=== PATIENT | female | born 1975 | race Caucasian/White ===

== ENCOUNTER → 2019-04-22 11:43 | Outpatient (CLI) | payer OTHER, SELFPAY | PROVIDERS: Visit Provider Nurse Practitioner | DX: R07.0 Pain in throat (principal) | CPT/HCPCS: 87070 ==

== ENCOUNTER 2020-08-06 17:59 | Emergency (ER) | payer OTHER, SELFPAY ==
[2020-08-06 18:03] VITALS: BP 196/101; PULSE 102; RESP 20; TEMP 36.9; O2SAT 100
--- NOTE | 2020-08-06 18:05 | DI.RAD.S_ITS ---
PROCEDURE: XR ANKLE RT MIN 3V INDICATIONS: twisting injury r/t glf TECHNIQUE: 3 views of the ankle were acquired. COMPARISON: None. FINDINGS: Bones: No fractures or dislocations. Ankle mortise is normally aligned. No suspicious bony lesions. Plantar calcaneal enthesophyte. Degenerative change in the midfoot. Soft tissues: No tibiotalar joint effusion. Achilles tendon appears normal. IMPRESSION: No acute osseous abnormality. Dictated by: Joseph Syed M.D. on 08/06/2020 at 18:48 Approved by: Joseph Syed M.D. on 08/06/2020 at 18:50
--- NOTE | 2020-08-06 18:05 | DI.RAD.S_ITS ---
PROCEDURE: XR FOOT RT MIN 3V INDICATIONS: twisting injury r/t glf TECHNIQUE: 3 views of the foot were acquired. COMPARISON: [facility], CR, XR ANKLE RT MIN 3V, 08/06/2020, 18:04. FINDINGS: Bones: No fractures or dislocations. No suspicious bony lesions. Plantar calcaneal spur. Degenerative change in the midfoot. Soft tissues: No tibiotalar joint effusion. Achilles tendon appears normal. IMPRESSION: No acute osseous abnormality. Dictated by: Joseph Syed M.D. on 08/06/2020 at 18:50 Approved by: Joseph Syed M.D. on 08/06/2020 at 18:50
--- NOTE | 2020-08-06 20:36 | ED.LOWEXIN ---
HPI - Extremity Injury (Lower) General Chief Complaint: Extremity Injury, Lower Stated Complaint: rt foot injury Time Seen by Provider: 08/06/20 18:04 Source: patient Mode of arrival: Wheelchair Limitations: no limitations History of Present Illness HPI Narrative: 44-year-old female former smoker with noncontributory medical history presents with her in the chief complaint of severe pain and swelling to her right foot and ankle after injury just prior to arrival. She was standing about 3 ft up on a small ladder when she misjudged her step and fell. She has the pain in her foot and ankle which are much worse with palpation and prevent her from ambulating. She denies any knee or hip pain. She did not strike her head and denies any neck or back pain. She denies any numbness, tingling or weakness. She is otherwise well and free of complaint MD complaint: ankle injury and foot injury Onset (ago): minute(s) Place: home Severity: severe Relieving factors: immobilization and rest Exacerbating factors: weight bearing and movement Context: fall Associated symptoms: snap/pop sensation, swelling and unable to bear weight Other symptoms: none Treatments prior to arrival: cold therapy Related Data Previous Rx's Medication Instructions Recorded albuterol sulfate 90 mcg/actuation 2 puff INHALATION Q4-6H PRN #8 gram 04/22/19 aerosol inhaler hydrocodone-acetaminophen 1 tab PO Q4-6H PRN #10 tab 08/06/20 Allergies Allergy/AdvReac Type Severity Reaction Status Date / Time Penicillins Allergy Unknown Unknown Verified 07/05/19 12:10 Review of Systems Constitutional Constitutional: Denies chills, Denies fatigue, Denies fever(s), Denies frequent falls, Denies lethargy and Denies weakness Eyes Eyes: Denies change in vision, Denies eye discharge, Denies irritation and Denies loss of vision ENT Ears, Nose, Mouth, and Throat: Denies change in voice, Denies dizziness, Denies neck pain, Denies sore throat and Denies throat swelling Cardiovascular Cardiovascular: Denies chest pain, Denies irregular heart rhythm, Denies lightheadedness, Denies palpitations, Denies dyspnea, Denies dyspnea on exertion and Denies orthopnea Respiratory Respiratory: Denies cough, Denies dyspnea, Denies dyspnea on exertion and Denies wheezing Gastrointestinal Gastrointestinal: Denies abdominal pain, Denies change in bowel habits, Denies diarrhea, Denies nausea and Denies vomiting Musculoskeletal Musculoskeletal: Reports arthralgias, Reports joint swelling, Reports limited range of motion, Denies neck pain and Denies numbness Integumentary/Breasts Skin/Breast: Denies pruritus, Denies erythema, Denies rash and Denies wounds Neurologic Neurologic: Denies behavioral changes, Denies confusion, Denies dizziness, Denies frequent falls, Denies loss of vision, Denies numbness and Denies weakness Psychiatric Psychiatric: Denies anxiety, Denies behavioral changes, Denies confusion, Denies depression, Denies homicidal ideation and Denies suicidal ideation Endocrine Endocrine: Denies fatigue, Denies flushing and Denies palpitations Hematologic/Lymphatic Hematologic/Lymphatic: Denies easy bruising Allergic/Immunologic Allergic/Immunologic: Denies urticaria, Denies throat swelling and Denies wheezing Patient History Social History Smoking Status: Former smoker Smoking Status: Former smoker Exam Narrative Exam Narrative: GEN: AOx3 and in mild distress EYES: Pupils are equal, round, and reactive to light and accommodation. Extraoccular muscles are intact bilaterally. There is no subconjunctival hemorrhage or exudate. CHEST: Lungs are clear to auscultation bilaterally and free of wheezes, rales, or rhonchi. Heart rate is regular rhythm, there are no murmurs, clicks, rubs, or gallops. There is no chest wall tenderness. ABD: Abdomen is soft and nontender. There is no guarding or rebound. Bowel sounds are normal in all 4 quadrants. There is no mass or organomegaly. EXT: Right ankle with limited range of motion secondary to pain and noted swelling and ecchymosis. Pain on palpation of lateral and medial malleoli and under heel. This is closed, isolated and neurovascularly intact.. SKIN: Warm, pink, and dry. No erythema or rash Initial Vital Signs Initial Vital Signs: Vital Signs Temperature 98.5 F 08/06/20 18:03 Pulse Rate 102 H 08/06/20 18:03 Respiratory Rate 20 08/06/20 18:03 Blood Pressure 196/101 H 08/06/20 18:03 Pulse Oximetry 100 08/06/20 18:03 Procedures Orthopedic Splinting/Casting Injury #1: Side: right Lower Extremity Injury Location: ankle and foot Lower Extremity Immobilizer: posterior splint and stirrup splint Other Orthopedic Equipment: crutches Post splinting neuro exam: intact Post splinting vascular exam: intact Placed by: Nursing Course Orders Ordered: Discontinued Medications Hydrocodone Bitart/Acetaminophen (Hydrocodone/Acet 5/325 Tablet) 2 tab PO NOW ONE Stop: 08/06/20 20:49 Last Admin: 08/06/20 21:06 Dose: 2 tab Documented by: THANIA Hydrocodone Bitart/Acetaminophen (Hydrocodone/Acet 5/325 Prepack) 1 bottle MISC SEEINSTR ONE Stop: 08/06/20 20:49 Last Admin: 08/06/20 21:06 Dose: 1 bottle Documented by: THANIA Ondansetron HCl (Ondansetron 4 Mg Odt Prepack) 1 bottle MISC SEEINSTR ONE Stop: 08/06/20 20:49 Last Admin: 08/06/20 21:06 Dose: 1 bottle Documented by: THANIA Ondansetron HCl (Ondansetron 4 Mg Odt) 4 mg SL NOW ONE Stop: 08/06/20 21:20 Last Admin: 08/06/20 21:23 Dose: 4 mg Documented by: THANIA Vital Signs Vital signs: Vital Signs - 8 hr 08/06/20 18:03 Temperature 98.5 F Pulse Rate 102 H Respiratory Rate 20 Blood Pressure 196/101 H Pulse Oximetry 100 MDM - Extremity Injury (Lower) Imaging Data Extremity x-ray #1: Radiologist's Impression: [address] [id number] ReportSigned Patient: Breanna Avila [facility]#: [id number]: 1975Acct:[id number]/Sex: 44 / FDate of Service: 08/06/20Loc: EDAccession Number: [id number] Procedure: XR ankle RT min 3V Ordering Provider: Pradeep Brown D.O. PROCEDURE: XR ANKLE RT MIN 3V INDICATIONS: twisting injury r/t glf TECHNIQUE: 3 views of the ankle were acquired. COMPARISON: None. FINDINGS: Bones: No fractures or dislocations. Ankle mortise is normally aligned. No suspicious bony lesions. Plantar calcaneal enthesophyte. Degenerative change in the midfoot. Soft tissues: No tibiotalar joint effusion. Achilles tendon appears normal. IMPRESSION: No acute osseous abnormality. Dictated by: Joseph Syed M.D. on 08/06/2020 at 18:48 Approved by: Joseph Syed M.D. on 08/06/2020 at 18:50 Extremity x-ray #2: Radiologist's Impression: Breanna Avila 44 F [address] [id number] ReportSigned Patient: Breanna Avila [facility]#: [id number]: 1975Acct:[id number]/Sex: 44 / FDate of Service: 08/06/20Loc: EDAccession Number: [id number] Procedure: XR foot RT min 3V Ordering Provider: Pradeep Brown D.O. PROCEDURE: XR FOOT RT MIN 3V INDICATIONS: twisting injury r/t glf TECHNIQUE: 3 views of the foot were acquired. COMPARISON: [facility], CR, XR ANKLE RT MIN 3V, 08/06/2020, 18:04. FINDINGS: Bones: No fractures or dislocations. No suspicious bony lesions. Plantar calcaneal spur. Degenerative change in the midfoot. Soft tissues: No tibiotalar joint effusion. Achilles tendon appears normal. IMPRESSION: No acute osseous abnormality. Dictated by: Joseph Syed M.D. on 08/06/2020 at 18:50 Approved by: Joseph Syed M.D. on 08/06/2020 at 18:50 CT LE: Radiologist's Impression: [address] [id number] Scan ReportSigned Patient: Breanna Avila [facility]#: [id number]: 1975Acct:[id number]/Sex: 44 / FDate of Service: 08/06/20Loc: EDAccession Number: [id number] Procedure: CT LE RT wo con Ordering Provider: Pradeep Brown D.O. PROCEDURE: CT LE RT WO CON INDICATIONS: fall with severe pain, swelling, ecchymosis TECHNIQUE: Noncontrast 1-1.5 mm axial sections acquired from above the tibiotalar joint to the bottom of the calcaneus, with coronal and sagittal reformats. COMPARISON: [facility], CR, XR FOOT RT MIN 3V, 08/06/2020, 18:04. [facility], CR, XR ANKLE RT MIN 3V, 08/06/2020, 18:04. FINDINGS: Image quality: Excellent. Bones: No acute fracture or dislocation. No suspicious lesion. Small bone cyst in the mid calcaneus. Small bone islands in the talus. Small well corticated ossicles near the tibiotalar joint and talonavicular joints due to remote injury. Plantar calcaneal spur. Soft tissues: Soft tissue edema is present. Skin thickening at the lateral foot is suspected. IMPRESSION: No acute fracture. Soft tissue edema and skin thickening most pronounced at the lateral foot. Dictated by: Jospeh Syed M.D. on 08/06/2020 at 21:45 Approved by: Joseph Syed M.D. on 08/06/2020 at 21:49 MDM Narrative Medical decision making narrative: Patient with significant pain, swelling and ecchymosis after fall. X-rays were negative and due to high suspicion of injury a CT was ordered. This to demonstrated no bony abnormality which would suggest soft tissue injury such as ligamentous tear. Patient splinted and instructed in nonweightbearing and use of crutches until follow-up with Orthopedics. Return precautions given and questions answered to her apparent satisfaction Discharge Plan Departure Patient Disposition: Home Clinical Impression: Ankle sprain Qualifiers: Encounter type: initial encounter Involved ligament of ankle: unspecified ligament Laterality: right Qualified Code(s): S93.401A - Sprain of unspecified ligament of right ankle, initial encounter Instructions: Ankle Sprain Activity Restrictions/Additional Instructions: *You have been diagnosed with [right ankle injury with suspicion of ligamentous injury. X-ray and CT scan demonstrate no fracture or dislocation] *What to do: *Take medications as directed *Follow up with [facility] in 2-3 days, call for an appointment. Let them know you were seen in the Emergency Department and that we ask that you be seen in follow up *Return to ER if you should have any new, worsening or concerning symptoms, such as [increasing pain, numbness, tingling or other bothersome symptoms Splint Care: Keep splint clean and dry. Elevated affected body part to decrease swelling. OK to use ice pack on the affected body part. Use for 15-20 minutes each time, for 5-6x per day. If you develop worsening pain, numbness, tingling, discoloration of the affected body part, loosen the splint by loosening the NATIVID[place] wrap, and either see your doctor for an urgent re-assessment, or return to the Emergency Department. Return to the Emergency Department for any new or worsening symptoms. ] Prescriptions: New hydrocodone-acetaminophen 5-325 mg tablet 1 tab PO Q4-6H PRN (Reason: pain) Qty: 10 RF: 0 No Action albuterol sulfate 90 mcg/actuation HFA aerosol inhaler 2 puff INHALATION Q4-6H PRN (Reason: shortness of breath or wheezing) Qty: 8 RF: 0 Referrals: Miscellaneous,Doctor, MD [Primary Care Provider] - Ben Addison MD [Physician] - Stand Alone Forms: Work Release Note
--- NOTE | 2020-08-06 20:48 | DI.CT.S_ITS ---
PROCEDURE: CT LE RT WO CON INDICATIONS: fall with severe pain, swelling, ecchymosis TECHNIQUE: Noncontrast 1-1.5 mm axial sections acquired from above the tibiotalar joint to the bottom of the calcaneus, with coronal and sagittal reformats. COMPARISON: [facility], CR, XR FOOT RT MIN 3V, 08/06/2020, 18:04. [facility], CR, XR ANKLE RT MIN 3V, 08/06/2020, 18:04. FINDINGS: Image quality: Excellent. Bones: No acute fracture or dislocation. No suspicious lesion. Small bone cyst in the mid calcaneus. Small bone islands in the talus. Small well corticated ossicles near the tibiotalar joint and talonavicular joints due to remote injury. Plantar calcaneal spur. Soft tissues: Soft tissue edema is present. Skin thickening at the lateral foot is suspected. IMPRESSION: No acute fracture. Soft tissue edema and skin thickening most pronounced at the lateral foot. Dictated by: Joseph Syed M.D. on 08/06/2020 at 21:45 Approved by: Joseph Syed M.D. on 08/06/2020 at 21:49
[2020-08-06] MEDS: HYDROCODONE/ACET 5/325 PREPACK 1 BOTTLE MISC (21:06)
[2020-08-06] MEDS: HYDROCODONE/ACET 5/325 TABLET 2 TAB PO (21:06)
[2020-08-06] MEDS: ONDANSETRON 4 MG ODT PREPACK 1 BOTTLE MISC (21:06)
[2020-08-06] MEDS: ONDANSETRON 4 MG ODT SL (21:23)
== END 2020-08-06 22:10 | disposition home or self-care (01) ==
PROVIDERS: Emergency Provider Emergency Medicine
DX: S93.401A Sprain of unspecified ligament of right ankle, initial encounter (principal); W11.XXXA Fall on and from ladder, initial encounter
CPT/HCPCS: 29515; 73610; 73630; 73700; 99283; 99284

== ENCOUNTER → 2021-05-15 08:33 | Outpatient (CLI) | payer OTHER, SELFPAY ==
[2021-05-15 08:59] LABS: COVID19 -Nasal RAPID POSITIVE (Negative)
== END ==
PROVIDERS: Visit Provider Nurse Practitioner Family
DX: U07.1 COVID-19 (principal); Z20.822 Contact with and (suspected) exposure to COVID-19
CPT/HCPCS: 87635

== ENCOUNTER 2022-06-16 00:29 | Emergency (ER) | payer OTHER, SELFPAY ==
[2022-06-16] VITALS (57 sets, daily range): BP systolic 122–166; BP diastolic 60–87; PULSE 84–140; RESP 13–34; TEMP 36.2–37.1; O2SAT 94–100; BMI 20.5
--- NOTE | 2022-06-16 00:52 | ED_ITS ---
HPI - Abdominal Pain <Pradeep Brown DO - Last Filed: 06/17/22 14:06> General Chief Complaint: Abdominal Pain Stated Complaint: possible hernia that bursted Time Seen by Provider: 06/16/22 00:34 History of Present Illness HPI narrative: 46F smoker and daily drinker presents with significant other and a chief complaint bleeding from her gums and unexplained bruising on her hip. She states that she has felt dizzy, weak, lightheaded and fatigued for the past few days and noticed her gums were bleeding this morning. She does not take any blood thinners and has never had this happened before. She states that her eyes have been a bit yellow and this is never happened to her before. She denies any fever or chills. She states that she is lost about 70 lb in the past 2 years without any explanation. She denies any chest pain but does state that exertion makes her feel fatigued. She as abdominal distention but states her abdomen continues to be soft. She is had a change in her stools and states that sometimes it is loose and other times it is more well formed. She denies any urinary complaints. Related Data Allergies Allergy/AdvReac Type Severity Reaction Status Date / Time Penicillins Allergy Unknown Unknown Verified 06/16/22 00:56 Review of Systems <Pradeep Brown DO - Last Filed: 06/17/22 14:06> Review of Systems Narrative: GENERAL: See HPI HEENT: See HPI RESPIRATORY: See HPI CARDIOVASCULAR: See HPI GASTROINTESTINAL: See HPI : Denies dysuria, frequency, incontinence, hematuria, urinary retention. MUSCULOSKELETAL: denies weakness, joint pain, or bony pain SKIN: See HPI NEUROLOGIC: Denies weakness, headache, numbness, change in speech, confusion, seizures, incoordination. PSYCHIATRIC: No concerning psychosocial issues. 12 point review of systems is negative except for those stated above Patient History <Pradeep Brown DO - Last Filed: 06/17/22 14:06> Surgical History (Updated 06/16/22 @ 16:39 by Delmar Brantley DO) History of tonsillectomy Family History (Updated 06/16/22 @ 16:39 by Delmar Brantley DO) Mother No pertinent past medical history Father No pertinent past medical history Social History Smoking Status: Former smoker alcohol intake: current (5-6 equivalents per day reported) substance use type: does not use Smoking Status: Former smoker Exam <Pradeep Brown DO - Last Filed: 06/17/22 14:06> Narrative Exam Narrative: GENERAL: [46] year old patient appears older than stated age. Thin, evidence of chronic illness HEAD: Atraumatic. Normocephalic. EYES: Pupils equal round and reactive. Extraocular motions intact. Bilateral jaundice e. ENT: Nose without bleeding, purulent drainage. Throat without erythema, tonsillar hypertrophy or exudate. Bleeding gums throughout NECK: Trachea midline. Non tender CARDIOVASCULAR: Regular rate and rhythm without murmurs, gallops, or rubs. RESPIRATORY: Clear to auscultation. Breath sounds equal bilaterally. No wheezes, rales, or rhonchi. GASTROINTESTINAL: Abdomen soft, slight distention, nontender, bowel sounds present EXTREMITIES: No edema or joint tenderness. BACK: Nontender without deformity or crepitance. No flank tenderness. NEURO: AOx3. SKIN: Petechiae noted on lower extremities, dark purplish yellow bruise on left hip Initial Vital Signs Initial Vital Signs: Vital Signs Temperature 98.7 F 06/16/22 00:46 Pulse Rate 85 06/16/22 00:46 Respiratory Rate 20 06/16/22 00:46 Blood Pressure 163/79 H 06/16/22 00:46 Pulse Oximetry 100 06/16/22 00:46 Oxygen Delivery Method 06/16/22 00:46 <Vineet Lee MD - Last Filed: 06/16/22 20:19> Initial Vital Signs Initial Vital Signs: Vital Signs Temperature 98.7 F 06/16/22 00:46 Pulse Rate 85 06/16/22 00:46 Respiratory Rate 20 06/16/22 00:46 Blood Pressure 163/79 H 06/16/22 00:46 Pulse Oximetry 100 06/16/22 00:46 Oxygen Delivery Method 06/16/22 00:46 Course <Pradeep Brown DO - Last Filed: 06/17/22 14:06> Orders Ordered: ED Orders 06/17/22 09:23 Consult to [facility] - Emergency Response Officer Stat Discontinued Medications Phytonadione 10 mg/ Sodium (Chloride) 101 mls @ 202 mls/hr IV NOW ONE Stop: 06/16/22 13:19 Last Infusion: 06/16/22 14:39 Dose: 0 mls/hr Documented By: Admin: 06/16/22 13:52 Dose: 202 mls/hr Documented By: ROSEMARY Magnesium Sulfate (Magnesium Sulfate) 2 gm in 50 mls @ 25 mls/hr IV NOW ONE Stop: 06/16/22 18:58 Last Infusion: 06/16/22 19:42 Dose: 0 mls/hr Documented By: CAREN Co-signed By: DONNELL Admin: 06/16/22 17:18 Dose: 25 mls/hr Documented By: ROSEMARY Co-signed By: MALIK Lorazepam (Lorazepam 2 Mg/Ml Inj) 0.5 mg IV NOW ONE Stop: 06/16/22 07:19 Last Admin: 06/16/22 07:22 Dose: 0.5 mg Documented By: ROSEMARY Lorazepam (Lorazepam 2 Mg/Ml Inj) 0.5 mg IV NOW ONE Stop: 06/16/22 17:11 Last Admin: 06/16/22 17:18 Dose: 0.5 mg Documented By: ROSEMARY Ondansetron HCl (Ondansetron 4 Mg/2 Ml Inj) 4 mg IV NOW ONE Stop: 06/16/22 17:11 Last Admin: 06/16/22 17:17 Dose: 4 mg Documented By: ROSEMARY Pantoprazole Sodium (Pantoprazole 40 Mg Vial) 80 mg IV NOW ONE Stop: 06/16/22 16:57 Last Admin: 06/16/22 17:17 Dose: 80 mg Documented By: ROSEMARY Pantoprazole Sodium (Pantoprazole 40 Mg Vial) 40 mg IV BID [facility] Last Admin: 06/17/22 09:02 Dose: 40 mg Documented By: Admin: 06/16/22 21:40 Dose: 40 mg Documented By: KAELA Consultations Consultation #1: [id number] - [place], no beds 0530 - [address] Vital Signs Vital signs: Vital Signs - 8 hr 06/17/22 06:30 06/17/22 07:00 06/17/22 07:30 Pulse Rate 111 H 114 H 103 H Respiratory Rate 21 14 16 Blood Pressure Pulse Oximetry 98 98 97 Oxygen Delivery Method Room Air 06/17/22 08:01 06/17/22 08:17 06/17/22 08:17 Pulse Rate 140 H 135 H Respiratory Rate 22 23 Blood Pressure 133/85 Pulse Oximetry 98 Oxygen Delivery Method Room Air 06/17/22 08:30 06/17/22 09:00 Pulse Rate 103 H 110 H Respiratory Rate 23 19 Blood Pressure 128/72 Pulse Oximetry 99 99 Oxygen Delivery Method Room Air Room Air <Vineet Lee MD - Last Filed: 06/16/22 20:19> Orders Ordered: ED Orders 06/17/22 09:23 Consult to [facility] - Emergency Response Officer Stat Discontinued Medications Phytonadione 10 mg/ Sodium (Chloride) 101 mls @ 202 mls/hr IV NOW ONE Stop: 06/16/22 13:19 Last Infusion: 06/16/22 14:39 Dose: 0 mls/hr Documented By: Admin: 06/16/22 13:52 Dose: 202 mls/hr Documented By: ROSEMARY Magnesium Sulfate (Magnesium Sulfate) 2 gm in 50 mls @ 25 mls/hr IV NOW ONE Stop: 06/16/22 18:58 Last Infusion: 06/16/22 19:42 Dose: 0 mls/hr Documented By: CAREN Co-signed By: DONNELL Admin: 06/16/22 17:18 Dose: 25 mls/hr Documented By: ROSEMARY Co-signed By: MALIK Lorazepam (Lorazepam 2 Mg/Ml Inj) 0.5 mg IV NOW ONE Stop: 06/16/22 07:19 Last Admin: 06/16/22 07:22 Dose: 0.5 mg Documented By: ROSEMARY Lorazepam (Lorazepam 2 Mg/Ml Inj) 0.5 mg IV NOW ONE Stop: 06/16/22 17:11 Last Admin: 06/16/22 17:18 Dose: 0.5 mg Documented By: ROSEMARY Ondansetron HCl (Ondansetron 4 Mg/2 Ml Inj) 4 mg IV NOW ONE Stop: 06/16/22 17:11 Last Admin: 06/16/22 17:17 Dose: 4 mg Documented By: ROSEMARY Pantoprazole Sodium (Pantoprazole 40 Mg Vial) 80 mg IV NOW ONE Stop: 06/16/22 16:57 Last Admin: 06/16/22 17:17 Dose: 80 mg Documented By: ROSEMARY Pantoprazole Sodium (Pantoprazole 40 Mg Vial) 40 mg IV BID INA Last Admin: 06/17/22 09:02 Dose: 40 mg Documented By: Admin: 02/07/23 21:40 Dose: 40 mg Documented By: KAELA Vital Signs Vital signs: Vital Signs - 8 hr 06/17/22 06:30 06/17/22 07:00 06/17/22 07:30 Pulse Rate 111 H 114 H 103 H Respiratory Rate 21 14 16 Blood Pressure Pulse Oximetry 98 98 97 Oxygen Delivery Method Room Air 06/17/22 08:01 06/17/22 08:17 06/17/22 08:17 Pulse Rate 140 H 135 H Respiratory Rate 22 23 Blood Pressure 133/85 Pulse Oximetry 98 Oxygen Delivery Method Room Air 06/17/22 08:30 06/17/22 09:00 Pulse Rate 103 H 110 H Respiratory Rate 23 19 Blood Pressure 128/72 Pulse Oximetry 99 99 Oxygen Delivery Method Room Air Room Air MDM - Abdominal Pain <Pradeep Brown, - Last Filed: 06/17/22 14:06> Lab Data 06/16/22 00:45 06/16/22 00:45 Labs: Lab Results 06/16/22 06/16/22 06/16/22 Range/Units 00:45 00:45 00:45 WBC 3.6 L (4.5-11.0) X10^3/uL RBC 3.15 L (4.0-5.2) X10^6/uL Hgb 8.5 L (12.0-16.0) g/dL Hct 26.3 L (36-46) % MCV 83.4 (80-100) fL MCH 27.1 (26-34) PG MCHC 32.4 (30-36) % RDW 21.9 H (11.6-14.8) % Plt Count 31 L* (150-400) X10^3/uL Neut % (Auto) 67.0 (50-75) % Lymph % (Auto) 22.7 L (25-40) % [place] % (Auto) 7.5 (3-14) % Eos % (Auto) 1.1 L (2-4) % Baso % (Auto) 1.7 (0-2) % Neut # (Auto) 2400 (8255-6342) /uL Lymph # (Auto) 800 L (8166-6755) /uL [place] # (Auto) 300 (0-900) /uL Eos # (Auto) 0 (0-450) /uL Baso # (Auto) 100 (0-100) /uL Platelet Estimate Decreased on smear RBC Morphology See below Anisocytosis 2+ H Target Cells Percent Retic (1.1-2.6) % PT 15.6 H (10.1-12.7) SECONDS INR 1.4 H (0.9-1.3) APTT 39 H (26-36) SECONDS Fibrinogen (211-428) mg/dL Sodium 141 (137-145) mmol/L Potassium 3.5 (3.4-5.1) mmol/L Chloride 98 (98-107) mmol/L Carbon Dioxide 27 (22-32) mmol/L BUN 7 (7-17) mg/dL Creatinine 0.35 L (0.52-1.04) mg/dL Estimated GFR > 60 (>60) mL/min BUN/Creatinine Ratio 20.0 (6-22) Glucose 95 (70-100) mg/dL Lactate (0.7-2.1) mmol/L Calcium 8.4 (8.4-10.2) mg/dL Magnesium (1.6-2.3) mg/dL Total Bilirubin 3.2 H (0.2-1.3) mg/dL AST 110 H (14-36) IU/L ALT 35 H (<35) IU/L Alkaline Phosphatase 154 H (38-126) U/L Ammonia (9-30) umol/L Total Protein 8.1 (6.3-8.2) g/dL Albumin 4.4 (3.5-5.0) g/dL Globulin 3.7 (1.7-4.1) g/dL Albumin/Globulin Ratio 1.2 (1.0-2.8) Lipase (23-300) U/L Urine Color Urine Appearance Urine pH (4.5-8.0) Ur Specific [place] (1.000-1.035) Urine Protein (Negative) Urine Glucose (UA) (Negative) g/dL Urine Ketones (NEGATIVE) Urine Occult Blood (Negative) Urine Nitrate (Negative) Urine Bilirubin (NEGATIVE) Urine Urobilinogen (0.2) E.U./dL Ur Leukocyte Esterase (NEGATIVE) Acetaminophen (10-30) ug/mL Ethyl Alcohol ( - 10) mg/dL SARS-CoV-2 (PCR) (Negative) Blood Type Antibody Screen Transfusion React Rpt Donor Unit # Lab Clerical Err Check Pre-Trans Blood Type Pre-Trans Vis Hemolysis Pre-Trans Antibody Scrn Post-Trans Blood Type Post-Tx Visible Hemolys Post-Trans Antibody Scrn Reaction Path Interpret 06/16/22 06/16/22 06/16/22 Range/Units 00:45 00:45 01:16 WBC (4.5-11.0) X10^3/uL RBC (4.0-5.2) X10^6/uL Hgb (12.0-16.0) g/dL Hct (36-46) % MCV (80-100) fL MCH (26-34) PG MCHC (30-36) % RDW (11.6-14.8) % Plt Count (150-400) X10^3/uL Neut % (Auto) (50-75) % Lymph % (Auto) (25-40) % [place] % (Auto) (3-14) % Eos % (Auto) (2-4) % Baso % (Auto) (0-2) % Neut # (Auto) (7660-5527) /uL Lymph # (Auto) (2828-0735) /uL [place] # (Auto) (0-900) /uL Eos # (Auto) (0-450) /uL Baso # (Auto) (0-100) /uL Platelet Estimate RBC Morphology Anisocytosis Target Cells Percent Retic (1.1-2.6) % PT (10.1-12.7) SECONDS INR (0.9-1.3) APTT (26-36) SECONDS Fibrinogen (211-428) mg/dL Sodium (137-145) mmol/L Potassium (3.4-5.1) mmol/L Chloride (98-107) mmol/L Carbon Dioxide (22-32) mmol/L BUN (7-17) mg/dL Creatinine (0.52-1.04) mg/dL Estimated GFR (>60) mL/min BUN/Creatinine Ratio (6-22) Glucose (70-100) mg/dL Lactate 2.2 H (0.7-2.1) mmol/L Calcium (8.4-10.2) mg/dL Magnesium 1.5 L (1.6-2.3) mg/dL Total Bilirubin (0.2-1.3) mg/dL AST (14-36) IU/L ALT (<35) IU/L Alkaline Phosphatase (38-126) U/L Ammonia (9-30) umol/L Total Protein (6.3-8.2) g/dL Albumin (3.5-5.0) g/dL Globulin (1.7-4.1) g/dL Albumin/Globulin Ratio (1.0-2.8) Lipase 380 H (23-300) U/L Urine Color Urine Appearance Urine pH (4.5-8.0) Ur Specific [place] (1.000-1.035) Urine Protein (Negative) Urine Glucose (UA) (Negative) g/dL Urine Ketones (NEGATIVE) Urine Occult Blood (Negative) Urine Nitrate (Negative) Urine Bilirubin (NEGATIVE) Urine Urobilinogen (0.2) E.U./dL Ur Leukocyte Esterase (NEGATIVE) Acetaminophen (10-30) ug/mL Ethyl Alcohol ( - 10) mg/dL SARS-CoV-2 (PCR) (Negative) Blood Type A Positive Antibody Screen Negative Transfusion React Rpt Donor Unit # Lab Clerical Err Check Pre-Trans Blood Type Pre-Trans Vis Hemolysis Pre-Trans Antibody Scrn Post-Trans Blood Type Post-Tx Visible Hemolys Post-Trans Antibody Scrn Reaction Path Interpret 06/16/22 06/16/22 06/16/22 Range/Units 01:16 03:24 05:43 WBC (4.5-11.0) X10^3/uL RBC (4.0-5.2) X10^6/uL Hgb Cancelled (12.0-16.0) g/dL Hct Cancelled (36-46) % MCV (80-100) fL MCH (26-34) PG MCHC (30-36) % RDW (11.6-14.8) % Plt Count (150-400) X10^3/uL Neut % (Auto) (50-75) % Lymph % (Auto) (25-40) % [place] % (Auto) (3-14) % Eos % (Auto) (2-4) % Baso % (Auto) (0-2) % Neut # (Auto) (7191-7490) /uL Lymph # (Auto) (3137-5744) /uL [place] # (Auto) (0-900) /uL Eos # (Auto) (0-450) /uL Baso # (Auto) (0-100) /uL Platelet Estimate RBC Morphology Anisocytosis Target Cells Percent Retic (1.1-2.6) % PT (10.1-12.7) SECONDS INR (0.9-1.3) APTT (26-36) SECONDS Fibrinogen (211-428) mg/dL Sodium (137-145) mmol/L Potassium (3.4-5.1) mmol/L Chloride (98-107) mmol/L Carbon Dioxide (22-32) mmol/L BUN (7-17) mg/dL Creatinine (0.52-1.04) mg/dL Estimated GFR (>60) mL/min BUN/Creatinine Ratio (6-22) Glucose (70-100) mg/dL Lactate 2.1 (0.7-2.1) mmol/L Calcium (8.4-10.2) mg/dL Magnesium (1.6-2.3) mg/dL Total Bilirubin (0.2-1.3) mg/dL AST (14-36) IU/L ALT (<35) IU/L Alkaline Phosphatase (38-126) U/L Ammonia 13 (9-30) umol/L Total Protein (6.3-8.2) g/dL Albumin (3.5-5.0) g/dL Globulin (1.7-4.1) g/dL Albumin/Globulin Ratio (1.0-2.8) Lipase (23-300) U/L Urine Color Urine Appearance Urine pH (4.5-8.0) Ur Specific [place] (1.000-1.035) Urine Protein (Negative) Urine Glucose (UA) (Negative) g/dL Urine Ketones (NEGATIVE) Urine Occult Blood (Negative) Urine Nitrate (Negative) Urine Bilirubin (NEGATIVE) Urine Urobilinogen (0.2) E.U./dL Ur Leukocyte Esterase (NEGATIVE) Acetaminophen (10-30) ug/mL Ethyl Alcohol ( - 10) mg/dL SARS-CoV-2 (PCR) (Negative) Blood Type Antibody Screen Transfusion React Rpt Donor Unit # Lab Clerical Err Check Pre-Trans Blood Type Pre-Trans Vis Hemolysis Pre-Trans Antibody Scrn Post-Trans Blood Type Post-Tx Visible Hemolys Post-Trans Antibody Scrn Reaction Path Interpret 0206/16/22 06/16/22 Range/Units 05:44 05:44 05:44 WBC (4.5-11.0) X10^3/uL RBC (4.0-5.2) X10^6/uL Hgb (12.0-16.0) g/dL Hct (36-46) % MCV (80-100) fL MCH (26-34) PG MCHC (30-36) % RDW (11.6-14.8) % Plt Count (150-400) X10^3/uL Neut % (Auto) (50-75) % Lymph % (Auto) (25-40) % [place] % (Auto) (3-14) % Eos % (Auto) (2-4) % Baso % (Auto) (0-2) % Neut # (Auto) (7994-9182) /uL Lymph # (Auto) (3204-0010) /uL [place] # (Auto) (0-900) /uL Eos # (Auto) (0-450) /uL Baso # (Auto) (0-100) /uL Platelet Estimate RBC Morphology Anisocytosis Target Cells Percent Retic 2.0 (1.1-2.6) % PT (10.1-12.7) SECONDS INR (0.9-1.3) APTT (26-36) SECONDS Fibrinogen (211-428) mg/dL Sodium (137-145) mmol/L Potassium (3.4-5.1) mmol/L Chloride (98-107) mmol/L Carbon Dioxide (22-32) mmol/L BUN (7-17) mg/dL Creatinine (0.52-1.04) mg/dL Estimated GFR (>60) mL/min BUN/Creatinine Ratio (6-22) Glucose (70-100) mg/dL Lactate (0.7-2.1) mmol/L Calcium (8.4-10.2) mg/dL Magnesium (1.6-2.3) mg/dL Total Bilirubin (0.2-1.3) mg/dL AST (14-36) IU/L ALT (<35) IU/L Alkaline Phosphatase (38-126) U/L Ammonia (9-30) umol/L Total Protein (6.3-8.2) g/dL Albumin (3.5-5.0) g/dL Globulin (1.7-4.1) g/dL Albumin/Globulin Ratio (1.0-2.8) Lipase (23-300) U/L Urine Color Urine Appearance Urine pH (4.5-8.0) Ur Specific [place] (1.000-1.035) Urine Protein (Negative) Urine Glucose (UA) (Negative) g/dL Urine Ketones (NEGATIVE) Urine Occult Blood (Negative) Urine Nitrate (Negative) Urine Bilirubin (NEGATIVE) Urine Urobilinogen (0.2) E.U./dL Ur Leukocyte Esterase (NEGATIVE) Acetaminophen < 10 (10-30) ug/mL Ethyl Alcohol 231 H ( - 10) mg/dL SARS-CoV-2 (PCR) (Negative) Blood Type Antibody Screen Transfusion React Rpt Donor Unit # Lab Clerical Err Check Pre-Trans Blood Type Pre-Trans Vis Hemolysis Pre-Trans Antibody Scrn Post-Trans Blood Type Post-Tx Visible Hemolys Post-Trans Antibody Scrn Reaction Path Interpret 06/16/22 06/16/22 06/16/22 Range/Units 06:10 09:50 09:50 WBC 3.0 L (4.5-11.0) X10^3/uL RBC 2.67 L (4.0-5.2) X10^6/uL Hgb 7.2 L (12.0-16.0) g/dL Hct 22.2 L (36-46) % MCV 83.2 (80-100) fL MCH 27.0 (26-34) PG MCHC 32.4 (30-36) % RDW 21.4 H (11.6-14.8) % Plt Count 49 L (150-400) X10^3/uL Neut % (Auto) 73.7 (50-75) % Lymph % (Auto) 15.8 L (25-40) % [place] % (Auto) 9.3 (3-14) % Eos % (Auto) 0.4 L (2-4) % Baso % (Auto) 0.8 (0-2) % Neut # (Auto) 2200 (6840-5851) /uL Lymph # (Auto) 500 L (9082-1640) /uL [place] # (Auto) 300 (0-900) /uL Eos # (Auto) 0 (0-450) /uL Baso # (Auto) 0 (0-100) /uL Platelet Estimate RBC Morphology See below Anisocytosis 2+ H Target Cells 1+ H Percent Retic (1.1-2.6) % PT 17.2 H (10.1-12.7) SECONDS INR 1.5 H (0.9-1.3) APTT (26-36) SECONDS Fibrinogen (211-428) mg/dL Sodium (137-145) mmol/L Potassium (3.4-5.1) mmol/L Chloride (98-107) mmol/L Carbon Dioxide (22-32) mmol/L BUN (7-17) mg/dL Creatinine (0.52-1.04) mg/dL Estimated GFR (>60) mL/min BUN/Creatinine Ratio (6-22) Glucose (70-100) mg/dL Lactate (0.7-2.1) mmol/L Calcium (8.4-10.2) mg/dL Magnesium (1.6-2.3) mg/dL Total Bilirubin (0.2-1.3) mg/dL AST (14-36) IU/L ALT (<35) IU/L Alkaline Phosphatase (38-126) U/L Ammonia (9-30) umol/L Total Protein (6.3-8.2) g/dL Albumin (3.5-5.0) g/dL Globulin (1.7-4.1) g/dL Albumin/Globulin Ratio (1.0-2.8) Lipase (23-300) U/L Urine Color Urine Appearance Urine pH (4.5-8.0) Ur Specific [place] (1.000-1.035) Urine Protein (Negative) Urine Glucose (UA) (Negative) g/dL Urine Ketones (NEGATIVE) Urine Occult Blood (Negative) Urine Nitrate (Negative) Urine Bilirubin (NEGATIVE) Urine Urobilinogen (0.2) E.U./dL Ur Leukocyte Esterase (NEGATIVE) Acetaminophen (10-30) ug/mL Ethyl Alcohol ( - 10) mg/dL SARS-CoV-2 (PCR) Negative (Negative) Blood Type Antibody Screen Transfusion React Rpt Donor Unit # Lab Clerical Err Check Pre-Trans Blood Type Pre-Trans Vis Hemolysis Pre-Trans Antibody Scrn Post-Trans Blood Type Post-Tx Visible Hemolys Post-Trans Antibody Scrn Reaction Path Interpret 06/16/22 06/16/22 06/16/22 Range/Units 09:50 11:20 13:06 WBC (4.5-11.0) X10^3/uL RBC (4.0-5.2) X10^6/uL Hgb 7.3 L (12.0-16.0) g/dL Hct 22.4 L (36-46) % MCV (80-100) fL MCH (26-34) PG MCHC (30-36) % RDW (11.6-14.8) % Plt Count (150-400) X10^3/uL Neut % (Auto) (50-75) % Lymph % (Auto) (25-40) % [place] % (Auto) (3-14) % Eos % (Auto) (2-4) % Baso % (Auto) (0-2) % Neut # (Auto) (1585-2743) /uL Lymph # (Auto) (6932-3731) /uL [place] # (Auto) (0-900) /uL Eos # (Auto) (0-450) /uL Baso # (Auto) (0-100) /uL Platelet Estimate RBC Morphology Anisocytosis Target Cells Percent Retic (1.1-2.6) % PT (10.1-12.7) SECONDS INR (0.9-1.3) APTT (26-36) SECONDS Fibrinogen (211-428) mg/dL Sodium 140 (137-145) mmol/L Potassium 3.4 (3.4-5.1) mmol/L Chloride 99 (98-107) mmol/L Carbon Dioxide 24 (22-32) mmol/L BUN 6 L (7-17) mg/dL Creatinine 0.27 L (0.52-1.04) mg/dL Estimated GFR > 60 (>60) mL/min BUN/Creatinine Ratio 22.2 H (6-22) Glucose 83 (70-100) mg/dL Lactate (0.7-2.1) mmol/L Calcium 8.1 L (8.4-10.2) mg/dL Magnesium (1.6-2.3) mg/dL Total Bilirubin 3.2 H (0.2-1.3) mg/dL AST 104 H (14-36) IU/L ALT 35 H (<35) IU/L Alkaline Phosphatase 121 (38-126) U/L Ammonia (9-30) umol/L Total Protein 7.5 (6.3-8.2) g/dL Albumin 4.0 (3.5-5.0) g/dL Globulin 3.5 (1.7-4.1) g/dL Albumin/Globulin Ratio 1.1 (1.0-2.8) Lipase (23-300) U/L Urine Color Urine Appearance Urine pH (4.5-8.0) Ur Specific [place] (1.000-1.035) Urine Protein (Negative) Urine Glucose (UA) (Negative) g/dL Urine Ketones (NEGATIVE) Urine Occult Blood (Negative) Urine Nitrate (Negative) Urine Bilirubin (NEGATIVE) Urine Urobilinogen (0.2) E.U./dL Ur Leukocyte Esterase (NEGATIVE) Acetaminophen (10-30) ug/mL Ethyl Alcohol ( - 10) mg/dL SARS-CoV-2 (PCR) (Negative) Blood Type Antibody Screen Transfusion React Rpt No discrepancies Donor Unit # [id number] Lab Clerical Err Check No error found Pre-Trans Blood Type A positive Pre-Trans Vis Hemolysis No Pre-Trans Antibody Scrn Negative Post-Trans Blood Type A positive Post-Tx Visible Hemolys No Post-Trans Antibody Scrn Negative Reaction Path Interpret 06/16/22 06/16/22 06/16/22 Range/Units 13:06 14:33 17:05 WBC (4.5-11.0) X10^3/uL RBC (4.0-5.2) X10^6/uL Hgb Cancelled (12.0-16.0) g/dL Hct Cancelled (36-46) % MCV (80-100) fL MCH (26-34) PG MCHC (30-36) % RDW (11.6-14.8) % Plt Count (150-400) X10^3/uL Neut % (Auto) (50-75) % Lymph % (Auto) (25-40) % [place] % (Auto) (3-14) % Eos % (Auto) (2-4) % Baso % (Auto) (0-2) % Neut # (Auto) (3131-8033) /uL Lymph # (Auto) (2099-2178) /uL [place] # (Auto) (0-900) /uL Eos # (Auto) (0-450) /uL Baso # (Auto) (0-100) /uL Platelet Estimate RBC Morphology Anisocytosis Target Cells Percent Retic (1.1-2.6) % PT (10.1-12.7) SECONDS INR (0.9-1.3) APTT (26-36) SECONDS Fibrinogen 171 L (211-428) mg/dL Sodium (137-145) mmol/L Potassium (3.4-5.1) mmol/L Chloride (98-107) mmol/L Carbon Dioxide (22-32) mmol/L BUN (7-17) mg/dL Creatinine (0.52-1.04) mg/dL Estimated GFR (>60) mL/min BUN/Creatinine Ratio (6-22) Glucose (70-100) mg/dL Lactate (0.7-2.1) mmol/L Calcium (8.4-10.2) mg/dL Magnesium (1.6-2.3) mg/dL Total Bilirubin (0.2-1.3) mg/dL AST (14-36) IU/L ALT (<35) IU/L Alkaline Phosphatase (38-126) U/L Ammonia (9-30) umol/L Total Protein (6.3-8.2) g/dL Albumin (3.5-5.0) g/dL Globulin (1.7-4.1) g/dL Albumin/Globulin Ratio (1.0-2.8) Lipase (23-300) U/L Urine Color Yellow Urine Appearance Clear Urine pH 8.0 (4.5-8.0) Ur Specific [place] 1.015 (1.000-1.035) Urine Protein Trace H (Negative) Urine Glucose (UA) Negative (Negative) g/dL Urine Ketones 3+ H (NEGATIVE) Urine Occult Blood Negative (Negative) Urine Nitrate Negative (Negative) Urine Bilirubin Negative (NEGATIVE) Urine Urobilinogen 4.0 H (0.2) E.U./dL Ur Leukocyte Esterase Negative (NEGATIVE) Acetaminophen (10-30) ug/mL Ethyl Alcohol ( - 10) mg/dL SARS-CoV-2 (PCR) (Negative) Blood Type Antibody Screen Transfusion React Rpt Donor Unit # Lab Clerical Err Check Pre-Trans Blood Type Pre-Trans Vis Hemolysis Pre-Trans Antibody Scrn Post-Trans Blood Type Post-Tx Visible Hemolys Post-Trans Antibody Scrn Reaction Path Interpret 06/16/22 06/17/22 06/17/22 Range/Units 17:05 04:25 04:25 WBC 3.2 L 2.9 L (4.5-11.0) X10^3/uL RBC 2.97 L 2.97 L (4.0-5.2) X10^6/uL Hgb 8.1 L 8.1 L (12.0-16.0) g/dL Hct 24.8 L 25.3 L (36-46) % MCV 83.4 85.0 (80-100) fL MCH 27.2 27.3 (26-34) PG MCHC 32.6 32.1 (30-36) % RDW 20.9 H 21.0 H (11.6-14.8) % Plt Count 49 L 45 L (150-400) X10^3/uL Neut % (Auto) 79.6 H 73.0 (50-75) % Lymph % (Auto) 6.8 L 16.0 L (25-40) % [place] % (Auto) 12.2 8.7 (3-14) % Eos % (Auto) 0.5 L 1.2 L (2-4) % Baso % (Auto) 0.9 1.1 (0-2) % Neut # (Auto) 2600 2100 (3204-7466) /uL Lymph # (Auto) 200 L 500 L (1497-0011) /uL [place] # (Auto) 400 300 (0-900) /uL Eos # (Auto) 0 0 (0-450) /uL Baso # (Auto) 0 0 (0-100) /uL Platelet Estimate Decreased on smear RBC Morphology See below See below Anisocytosis 1+ H 1+ H Target Cells 1+ H Percent Retic (1.1-2.6) % PT (10.1-12.7) SECONDS INR (0.9-1.3) APTT (26-36) SECONDS Fibrinogen (211-428) mg/dL Sodium 135 L (137-145) mmol/L Potassium 3.3 L (3.4-5.1) mmol/L Chloride 93 L (98-107) mmol/L Carbon Dioxide 21 L (22-32) mmol/L BUN 7 (7-17) mg/dL Creatinine 0.36 L (0.52-1.04) mg/dL Estimated GFR > 60 (>60) mL/min BUN/Creatinine Ratio 19.4 (6-22) Glucose 79 (70-100) mg/dL Lactate (0.7-2.1) mmol/L Calcium 8.0 L (8.4-10.2) mg/dL Magnesium 1.8 (1.6-2.3) mg/dL Total Bilirubin 6.8 H (0.2-1.3) mg/dL AST 89 H (14-36) IU/L ALT 33 (<35) IU/L Alkaline Phosphatase 114 (38-126) U/L Ammonia (9-30) umol/L Total Protein 7.5 (6.3-8.2) g/dL Albumin 4.1 (3.5-5.0) g/dL Globulin 3.4 (1.7-4.1) g/dL Albumin/Globulin Ratio 1.2 (1.0-2.8) Lipase (23-300) U/L Urine Color Urine Appearance Urine pH (4.5-8.0) Ur Specific [place] (1.000-1.035) Urine Protein (Negative) Urine Glucose (UA) (Negative) g/dL Urine Ketones (NEGATIVE) Urine Occult Blood (Negative) Urine Nitrate (Negative) Urine Bilirubin (NEGATIVE) Urine Urobilinogen (0.2) E.U./dL Ur Leukocyte Esterase (NEGATIVE) Acetaminophen (10-30) ug/mL Ethyl Alcohol ( - 10) mg/dL SARS-CoV-2 (PCR) (Negative) Blood Type Antibody Screen Transfusion React Rpt Donor Unit # Lab Clerical Err Check Pre-Trans Blood Type Pre-Trans Vis Hemolysis Pre-Trans Antibody Scrn Post-Trans Blood Type Post-Tx Visible Hemolys Post-Trans Antibody Scrn Reaction Path Interpret Point of care testing: Point of Care Testing Stool Occult Blood Positive Urine Dip Bedside Urine Glucose Negative Bedside Urine Bilirubin - Negative Bedside Urine Ketone +++ 80 Urine Specific [place] 1.015 Bedside Urine Occult Blood - Negative Bedside Urine pH 7.0 Bedside Urine Protein - Negative Bedside Urine Urobilinogen 1+ 2mg Bedside Urine Nitrite - Negative Bedside Urine Leukocytes - Negative Esterase MDM Narrative Medical decision making narrative: CC: 46-year-old female daily drinker with dizziness, weakness, lightheadedness, bleeding from gums and abnormal bruising Complicating co-morbidities: Chronic alcohol use Data collected from: Patient is Medical records reviewed: one prior ED visit in EMR Differential considered, but not limited to: liver failure, anemia, infection, cancer, vs. other Exam documented above, pertinent findings include: scleral icterus, bleeding gums, mild abdominal distension Lab Test results independently reviewed as above. Pertinent findings: pancytopenia, (PLT 30), INR 1.4, Bili / LFTs elevated Imaging studies independently reviewed: cirrhosis Scores Used: MELD (15) Consultations: GI at [facility], given no fever, chills no need for ABX at this time Treatments: Re-evaluations: Ketty] received patient in sign-out. 46-year-old female with cirrhosis and new onset decompensated liver failure in the setting of alcoholic cirrhosis. Patient pending platelet transfusion for thrombocytopenia with active bleeding from the gums, no evidence of significant GI hemorrhage on initial evaluation. Patient pending transfer for ongoing management, however, due to limited bed availability, patient's workup is continuing in the emergency department including MR abdomen, hepatitis panel. Patient received platelet transfusion a nd had minimal improvement in bleeding from the gums, 2nd platelet pack was ordered and transferred from [place], due to active bleeding, limited alternative treatments available at this site, pt transfused FFP and vitamin K. Pt did develop vomiting and tachycardia that resolved during FFP administration. FFP administration was stopped, however, significant transfusion reaction seems less likely. Following FFP administration pt did have resolution in bleeding from the gums. [place] [address], however, h/h trending lower. Repeat H/H stabel on repeat. Discussed case with transfer center, pt continues to be on multiple area transfer/admission lists. Dicussed case with hospital medicine team at this facility and pt evaluated, appreciate consult while pt boarding in ED pending disposition. [facility] placement. [1800] (Kevin) Patient received in sign out from Dr. Hdez]. I have reviewed the clinical course and performed an independent history and physical exam. Still on [facility] see list, overall feeling improvement, patient has understanding that we are still attempting to transfer but his may not manifest, will observe overnight, repeat labs in morning and possibly discharge 0630 -patient continues to feel better, no ongoing bleeding. Repeat labs this morning show a subtle drop in platelets down to 45. She is ambulating to the bathroom without difficulty, denies any headache or blurred vision, no chest pain, no abdominal pain nausea or vomiting. We discussed at length are various options and she would strongly prefer against waiting any longer to see about the low likelihood of transfer. She prefers to see how eating her breakfast tray this morning goes and would like to be discharged later this morning. <Vineet Lee MD - Last Filed: 06/16/22 20:19> Lab Data Labs: Lab Results 06/16/22 06/16/22 06/16/22 Range/Units 00:45 00:45 00:45 WBC 3.6 L (4.5-11.0) X10^3/uL RBC 3.15 L (4.0-5.2) X10^6/uL Hgb 8.5 L (12.0-16.0) g/dL Hct 26.3 L (36-46) % MCV 83.4 (80-100) fL MCH 27.1 (26-34) PG MCHC 32.4 (30-36) % RDW 21.9 H (11.6-14.8) % Plt Count 31 L* (150-400) X10^3/uL Neut % (Auto) 67.0 (50-75) % Lymph % (Auto) 22.7 L (25-40) % [place]ayson % (Auto) 7.5 (3-14) % Eos % (Auto) 1.1 L (2-4) % Baso % (Auto) 1.7 (0-2) % Neut # (Auto) 2400 (1144-8997) /uL Lymph # (Auto) 800 L (4011-2053) /uL Grayson # (Auto) 300 (0-900) /uL Eos # (Auto) 0 (0-450) /uL Baso # (Auto) 100 (0-100) /uL Platelet Estimate Decreased on smear RBC Morphology See below Anisocytosis 2+ H Target Cells Percent Retic (1.1-2.6) % PT 15.6 H (10.1-12.7) SECONDS INR 1.4 H (0.9-1.3) APTT 39 H (26-36) SECONDS Fibrinogen (211-428) mg/dL Sodium 141 (137-145) mmol/L Potassium 3.5 (3.4-5.1) mmol/L Chloride 98 (98-107) mmol/L Carbon Dioxide 27 (22-32) mmol/L BUN 7 (7-17) mg/dL Creatinine 0.35 L (0.52-1.04) mg/dL Estimated GFR > 60 (>60) mL/min BUN/Creatinine Ratio 20.0 (6-22) Glucose 95 (70-100) mg/dL Lactate (0.7-2.1) mmol/L Calcium 8.4 (8.4-10.2) mg/dL Magnesium (1.6-2.3) mg/dL Total Bilirubin 3.2 H (0.2-1.3) mg/dL AST 110 H (14-36) IU/L ALT 35 H (<35) IU/L Alkaline Phosphatase 154 H (38-126) U/L Ammonia (9-30) umol/L Total Protein 8.1 (6.3-8.2) g/dL Albumin 4.4 (3.5-5.0) g/dL Globulin 3.7 (1.7-4.1) g/dL Albumin/Globulin Ratio 1.2 (1.0-2.8) Lipase (23-300) U/L Urine Color Urine Appearance Urine pH (4.5-8.0) Ur Specific [place] (1.000-1.035) Urine Protein (Negative) Urine Glucose (UA) (Negative) g/dL Urine Ketones (NEGATIVE) Urine Occult Blood (Negative) Urine Nitrate (Negative) Urine Bilirubin (NEGATIVE) Urine Urobilinogen (0.2) E.U./dL Ur Leukocyte Esterase (NEGATIVE) Acetaminophen (10-30) ug/mL Ethyl Alcohol ( - 10) mg/dL SARS-CoV-2 (PCR) (Negative) Blood Type Antibody Screen Transfusion React Rpt Donor Unit # Lab Clerical Err Check Pre-Trans Blood Type Pre-Trans Vis Hemolysis Pre-Trans Antibody Scrn Post-Trans Blood Type Post-Tx Visible Hemolys Post-Trans Antibody Scrn Reaction Path Interpret 06/16/22 06/16/22 06/16/22 Range/Units 00:45 00:45 01:16 WBC (4.5-11.0) X10^3/uL RBC (4.0-5.2) X10^6/uL Hgb (12.0-16.0) g/dL Hct (36-46) % MCV (80-100) fL MCH (26-34) PG MCHC (30-36) % RDW (11.6-14.8) % Plt Count (150-400) X10^3/uL Neut % (Auto) (50-75) % Lymph % (Auto) (25-40) % [place] % (Auto) (3-14) % Eos % (Auto) (2-4) % Baso % (Auto) (0-2) % Neut # (Auto) (5428-6301) /uL Lymph # (Auto) (7487-0386) /uL [place] # (Auto) (0-900) /uL Eos # (Auto) (0-450) /uL Baso # (Auto) (0-100) /uL Platelet Estimate RBC Morphology Anisocytosis Target Cells Percent Retic (1.1-2.6) % PT (10.1-12.7) SECONDS INR (0.9-1.3) APTT (26-36) SECONDS Fibrinogen (211-428) mg/dL Sodium (137-145) mmol/L Potassium (3.4-5.1) mmol/L Chloride (98-107) mmol/L Carbon Dioxide (22-32) mmol/L BUN (7-17) mg/dL Creatinine (0.52-1.04) mg/dL Estimated GFR (>60) mL/min BUN/Creatinine Ratio (6-22) Glucose (70-100) mg/dL Lactate 2.2 H (0.7-2.1) mmol/L Calcium (8.4-10.2) mg/dL Magnesium 1.5 L (1.6-2.3) mg/dL Total Bilirubin (0.2-1.3) mg/dL AST (14-36) IU/L ALT (<35) IU/L Alkaline Phosphatase (38-126) U/L Ammonia (9-30) umol/L Total Protein (6.3-8.2) g/dL Albumin (3.5-5.0) g/dL Globulin (1.7-4.1) g/dL Albumin/Globulin Ratio (1.0-2.8) Lipase 380 H (23-300) U/L Urine Color Urine Appearance Urine pH (4.5-8.0) Ur Specific [place] (1.000-1.035) Urine Protein (Negative) Urine Glucose (UA) (Negative) g/dL Urine Ketones (NEGATIVE) Urine Occult Blood (Negative) Urine Nitrate (Negative) Urine Bilirubin (NEGATIVE) Urine Urobilinogen (0.2) E.U./dL Ur Leukocyte Esterase (NEGATIVE) Acetaminophen (10-30) ug/mL Ethyl Alcohol ( - 10) mg/dL SARS-CoV-2 (PCR) (Negative) Blood Type A Positive Antibody Screen Negative Transfusion React Rpt Donor Unit # Lab Clerical Err Check Pre-Trans Blood Type Pre-Trans Vis Hemolysis Pre-Trans Antibody Scrn Post-Trans Blood Type Post-Tx Visible Hemolys Post-Trans Antibody Scrn Reaction Path Interpret 06/16/22 06/16/22 06/16/22 Range/Units 01:16 03:24 05:43 WBC (4.5-11.0) X10^3/uL RBC (4.0-5.2) X10^6/uL Hgb Cancelled (12.0-16.0) g/dL Hct Cancelled (36-46) % MCV (80-100) fL MCH (26-34) PG MCHC (30-36) % RDW (11.6-14.8) % Plt Count (150-400) X10^3/uL Neut % (Auto) (50-75) % Lymph % (Auto) (25-40) % [place] % (Auto) (3-14) % Eos % (Auto) (2-4) % Baso % (Auto) (0-2) % Neut # (Auto) (9038-8048) /uL Lymph # (Auto) (4177-3784) /uL [place] # (Auto) (0-900) /uL Eos # (Auto) (0-450) /uL Baso # (Auto) (0-100) /uL Platelet Estimate RBC Morphology Anisocytosis Target Cells Percent Retic (1.1-2.6) % PT (10.1-12.7) SECONDS INR (0.9-1.3) APTT (26-36) SECONDS Fibrinogen (211-428) mg/dL Sodium (137-145) mmol/L Potassium (3.4-5.1) mmol/L Chloride (98-107) mmol/L Carbon Dioxide (22-32) mmol/L BUN (7-17) mg/dL Creatinine (0.52-1.04) mg/dL Estimated GFR (>60) mL/min BUN/Creatinine Ratio (6-22) Glucose (70-100) mg/dL Lactate 2.1 (0.7-2.1) mmol/L Calcium (8.4-10.2) mg/dL Magnesium (1.6-2.3) mg/dL Total Bilirubin (0.2-1.3) mg/dL AST (14-36) IU/L ALT (<35) IU/L Alkaline Phosphatase (38-126) U/L Ammonia 13 (9-30) umol/L Total Protein (6.3-8.2) g/dL Albumin (3.5-5.0) g/dL Globulin (1.7-4.1) g/dL Albumin/Globulin Ratio (1.0-2.8) Lipase (23-300) U/L Urine Color Urine Appearance Urine pH (4.5-8.0) Ur Specific [place] (1.000-1.035) Urine Protein (Negative) Urine Glucose (UA) (Negative) g/dL Urine Ketones (NEGATIVE) Urine Occult Blood (Negative) Urine Nitrate (Negative) Urine Bilirubin (NEGATIVE) Urine Urobilinogen (0.2) E.U./dL Ur Leukocyte Esterase (NEGATIVE) Acetaminophen (10-30) ug/mL Ethyl Alcohol ( - 10) mg/dL SARS-CoV-2 (PCR) (Negative) Blood Type Antibody Screen Transfusion React Rpt Donor Unit # Lab Clerical Err Check Pre-Trans Blood Type Pre-Trans Vis Hemolysis Pre-Trans Antibody Scrn Post-Trans Blood Type Post-Tx Visible Hemolys Post-Trans Antibody Scrn Reaction Path Interpret 06/16/22 06/16/22 06/16/22 Range/Units 05:44 05:44 05:44 WBC (4.5-11.0) X10^3/uL RBC (4.0-5.2) X10^6/uL Hgb (12.0-16.0) g/dL Hct (36-46) % MCV (80-100) fL MCH (26-34) PG MCHC (30-36) % RDW (11.6-14.8) % Plt Count (150-400) X10^3/uL Neut % (Auto) (50-75) % Lymph % (Auto) (25-40) % [place] % (Auto) (3-14) % Eos % (Auto) (2-4) % Baso % (Auto) (0-2) % Neut # (Auto) (1320-1674) /uL Lymph # (Auto) (5282-3941) /uL [place] # (Auto) (0-900) /uL Eos # (Auto) (0-450) /uL Baso # (Auto) (0-100) /uL Platelet Estimate RBC Morphology Anisocytosis Target Cells Percent Retic 2.0 (1.1-2.6) % PT (10.1-12.7) SECONDS INR (0.9-1.3) APTT (26-36) SECONDS Fibrinogen (211-428) mg/dL Sodium (137-145) mmol/L Potassium (3.4-5.1) mmol/L Chloride (98-107) mmol/L Carbon Dioxide (22-32) mmol/L BUN (7-17) mg/dL Creatinine (0.52-1.04) mg/dL Estimated GFR (>60) mL/min BUN/Creatinine Ratio (6-22) Glucose (70-100) mg/dL Lactate (0.7-2.1) mmol/L Calcium (8.4-10.2) mg/dL Magnesium (1.6-2.3) mg/dL Total Bilirubin (0.2-1.3) mg/dL AST (14-36) IU/L ALT (<35) IU/L Alkaline Phosphatase (38-126) U/L Ammonia (9-30) umol/L Total Protein (6.3-8.2) g/dL Albumin (3.5-5.0) g/dL Globulin (1.7-4.1) g/dL Albumin/Globulin Ratio (1.0-2.8) Lipase (23-300) U/L Urine Color Urine Appearance Urine pH (4.5-8.0) Ur Specific [place] (1.000-1.035) Urine Protein (Negative) Urine Glucose (UA) (Negative) g/dL Urine Ketones (NEGATIVE) Urine Occult Blood (Negative) Urine Nitrate (Negative) Urine Bilirubin (NEGATIVE) Urine Urobilinogen (0.2) E.U./dL Ur Leukocyte Esterase (NEGATIVE) Acetaminophen < 10 (10-30) ug/mL Ethyl Alcohol 231 H ( - 10) mg/dL SARS-CoV-2 (PCR) (Negative) Blood Type Antibody Screen Transfusion React Rpt Donor Unit # Lab Clerical Err Check Pre-Trans Blood Type Pre-Trans Vis Hemolysis Pre-Trans Antibody Scrn Post-Trans Blood Type Post-Tx Visible Hemolys Post-Trans Antibody Scrn Reaction Path Interpret 06/16/22 06/16/22 06/16/22 Range/Units 06:10 09:50 09:50 WBC 3.0 L (4.5-11.0) X10^3/uL RBC 2.67 L (4.0-5.2) X10^6/uL Hgb 7.2 L (12.0-16.0) g/dL Hct 22.2 L (36-46) % MCV 83.2 (80-100) fL MCH 27.0 (26-34) PG MCHC 32.4 (30-36) % RDW 21.4 H (11.6-14.8) % Plt Count 49 L (150-400) X10^3/uL Neut % (Auto) 73.7 (50-75) % Lymph % (Auto) 15.8 L (25-40) % [place] % (Auto) 9.3 (3-14) % Eos % (Auto) 0.4 L (2-4) % Baso % (Auto) 0.8 (0-2) % Neut # (Auto) 2200 (9754-2503) /uL Lymph # (Auto) 500 L (0862-6058) /uL [place] # (Auto) 300 (0-900) /uL Eos # (Auto) 0 (0-450) /uL Baso # (Auto) 0 (0-100) /uL Platelet Estimate RBC Morphology See below Anisocytosis 2+ H Target Cells 1+ H Percent Retic (1.1-2.6) % PT 17.2 H (10.1-12.7) SECONDS INR 1.5 H (0.9-1.3) APTT (26-36) SECONDS Fibrinogen (211-428) mg/dL Sodium (137-145) mmol/L Potassium (3.4-5.1) mmol/L Chloride (98-107) mmol/L Carbon Dioxide (22-32) mmol/L BUN (7-17) mg/dL Creatinine (0.52-1.04) mg/dL Estimated GFR (>60) mL/min BUN/Creatinine Ratio (6-22) Glucose (70-100) mg/dL Lactate (0.7-2.1) mmol/L Calcium (8.4-10.2) mg/dL Magnesium (1.6-2.3) mg/dL Total Bilirubin (0.2-1.3) mg/dL AST (14-36) IU/L ALT (<35) IU/L Alkaline Phosphatase (38-126) U/L Ammonia (9-30) umol/L Total Protein (6.3-8.2) g/dL Albumin (3.5-5.0) g/dL Globulin (1.7-4.1) g/dL Albumin/Globulin Ratio (1.0-2.8) Lipase (23-300) U/L Urine Color Urine Appearance Urine pH (4.5-8.0) Ur Specific [place] (1.000-1.035) Urine Protein (Negative) Urine Glucose (UA) (Negative) g/dL Urine Ketones (NEGATIVE) Urine Occult Blood (Negative) Urine Nitrate (Negative) Urine Bilirubin (NEGATIVE) Urine Urobilinogen (0.2) E.U./dL Ur Leukocyte Esterase (NEGATIVE) Acetaminophen (10-30) ug/mL Ethyl Alcohol ( - 10) mg/dL SARS-CoV-2 (PCR) Negative (Negative) Blood Type Antibody Screen Transfusion React Rpt Donor Unit # Lab Clerical Err Check Pre-Trans Blood Type Pre-Trans Vis Hemolysis Pre-Trans Antibody Scrn Post-Trans Blood Type Post-Tx Visible Hemolys Post-Trans Antibody Scrn Reaction Path Interpret 06/16/22 06/16/22 06/16/22 Range/Units 09:50 11:20 13:06 WBC (4.5-11.0) X10^3/uL RBC (4.0-5.2) X10^6/uL Hgb 7.3 L (12.0-16.0) g/dL Hct 22.4 L (36-46) % MCV (80-100) fL MCH (26-34) PG MCHC (30-36) % RDW (11.6-14.8) % Plt Count (150-400) X10^3/uL Neut % (Auto) (50-75) % Lymph % (Auto) (25-40) % [place] % (Auto) (3-14) % Eos % (Auto) (2-4) % Baso % (Auto) (0-2) % Neut # (Auto) (2071-2752) /uL Lymph # (Auto) (6582-4072) /uL [place] # (Auto) (0-900) /uL Eos # (Auto) (0-450) /uL Baso # (Auto) (0-100) /uL Platelet Estimate RBC Morphology Anisocytosis Target Cells Percent Retic (1.1-2.6) % PT (10.1-12.7) SECONDS INR (0.9-1.3) APTT (26-36) SECONDS Fibrinogen (211-428) mg/dL Sodium 140 (137-145) mmol/L Potassium 3.4 (3.4-5.1) mmol/L Chloride 99 (98-107) mmol/L Carbon Dioxide 24 (22-32) mmol/L BUN 6 L (7-17) mg/dL Creatinine 0.27 L (0.52-1.04) mg/dL Estimated GFR > 60 (>60) mL/min BUN/Creatinine Ratio 22.2 H (6-22) Glucose 83 (70-100) mg/dL Lactate (0.7-2.1) mmol/L Calcium 8.1 L (8.4-10.2) mg/dL Magnesium (1.6-2.3) mg/dL Total Bilirubin 3.2 H (0.2-1.3) mg/dL AST 104 H (14-36) IU/L ALT 35 H (<35) IU/L Alkaline Phosphatase 121 (38-126) U/L Ammonia (9-30) umol/L Total Protein 7.5 (6.3-8.2) g/dL Albumin 4.0 (3.5-5.0) g/dL Globulin 3.5 (1.7-4.1) g/dL Albumin/Globulin Ratio 1.1 (1.0-2.8) Lipase (23-300) U/L Urine Color Urine Appearance Urine pH (4.5-8.0) Ur Specific [place] (1.000-1.035) Urine Protein (Negative) Urine Glucose (UA) (Negative) g/dL Urine Ketones (NEGATIVE) Urine Occult Blood (Negative) Urine Nitrate (Negative) Urine Bilirubin (NEGATIVE) Urine Urobilinogen (0.2) E.U./dL Ur Leukocyte Esterase (NEGATIVE) Acetaminophen (10-30) ug/mL Ethyl Alcohol ( - 10) mg/dL SARS-CoV-2 (PCR) (Negative) Blood Type Antibody Screen Transfusion React Rpt No discrepancies Donor Unit # [id number] Lab Clerical Err Check No error found Pre-Trans Blood Type A positive Pre-Trans Vis Hemolysis No Pre-Trans Antibody Scrn Negative Post-Trans Blood Type A positive Post-Tx Visible Hemolys No Post-Trans Antibody Scrn Negative Reaction Path Interpret 06/16/22 06/16/22 06/16/22 Range/Units 13:06 14:33 17:05 WBC (4.5-11.0) X10^3/uL RBC (4.0-5.2) X10^6/uL Hgb Cancelled (12.0-16.0) g/dL Hct Cancelled (36-46) % MCV (80-100) fL MCH (26-34) PG MCHC (30-36) % RDW (11.6-14.8) % Plt Count (150-400) X10^3/uL Neut % (Auto) (50-75) % Lymph % (Auto) (25-40) % [place] % (Auto) (3-14) % Eos % (Auto) (2-4) % Baso % (Auto) (0-2) % Neut # (Auto) (9330-6691) /uL Lymph # (Auto) (1162-4682) /uL [place] # (Auto) (0-900) /uL Eos # (Auto) (0-450) /uL Baso # (Auto) (0-100) /uL Platelet Estimate RBC Morphology Anisocytosis Target Cells Percent Retic (1.1-2.6) % PT (10.1-12.7) SECONDS INR (0.9-1.3) APTT (26-36) SECONDS Fibrinogen 171 L (211-428) mg/dL Sodium (137-145) mmol/L Potassium (3.4-5.1) mmol/L Chloride (98-107) mmol/L Carbon Dioxide (22-32) mmol/L BUN (7-17) mg/dL Creatinine (0.52-1.04) mg/dL Estimated GFR (>60) mL/min BUN/Creatinine Ratio (6-22) Glucose (70-100) mg/dL Lactate (0.7-2.1) mmol/L Calcium (8.4-10.2) mg/dL Magnesium (1.6-2.3) mg/dL Total Bilirubin (0.2-1.3) mg/dL AST (14-36) IU/L ALT (<35) IU/L Alkaline Phosphatase (38-126) U/L Ammonia (9-30) umol/L Total Protein (6.3-8.2) g/dL Albumin (3.5-5.0) g/dL Globulin (1.7-4.1) g/dL Albumin/Globulin Ratio (1.0-2.8) Lipase (23-300) U/L Urine Color Yellow Urine Appearance Clear Urine pH 8.0 (4.5-8.0) Ur Specific [place] 1.015 (1.000-1.035) Urine Protein Trace H (Negative) Urine Glucose (UA) Negative (Negative) g/dL Urine Ketones 3+ H (NEGATIVE) Urine Occult Blood Negative (Negative) Urine Nitrate Negative (Negative) Urine Bilirubin Negative (NEGATIVE) Urine Urobilinogen 4.0 H (0.2) E.U./dL Ur Leukocyte Esterase Negative (NEGATIVE) Acetaminophen (10-30) ug/mL Ethyl Alcohol ( - 10) mg/dL SARS-CoV-2 (PCR) (Negative) Blood Type Antibody Screen Transfusion React Rpt Donor Unit # Lab Clerical Err Check Pre-Trans Blood Type Pre-Trans Vis Hemolysis Pre-Trans Antibody Scrn Post-Trans Blood Type Post-Tx Visible Hemolys Post-Trans Antibody Scrn Reaction Path Interpret 06/16/22 06/17/22 06/17/22 Range/Units 17:05 04:25 04:25 WBC 3.2 L 2.9 L (4.5-11.0) X10^3/uL RBC 2.97 L 2.97 L (4.0-5.2) X10^6/uL Hgb 8.1 L 8.1 L (12.0-16.0) g/dL Hct 24.8 L 25.3 L (36-46) % MCV 83.4 85.0 (80-100) fL MCH 27.2 27.3 (26-34) PG MCHC 32.6 32.1 (30-36) % RDW 20.9 H 21.0 H (11.6-14.8) % Plt Count 49 L 45 L (150-400) X10^3/uL Neut % (Auto) 79.6 H 73.0 (50-75) % Lymph % (Auto) 6.8 L 16.0 L (25-40) % [place] % (Auto) 12.2 8.7 (3-14) % Eos % (Auto) 0.5 L 1.2 L (2-4) % Baso % (Auto) 0.9 1.1 (0-2) % Neut # (Auto) 2600 2100 (7420-4116) /uL Lymph # (Auto) 200 L 500 L (4281-3709) /uL [place] # (Auto) 400 300 (0-900) /uL Eos # (Auto) 0 0 (0-450) /uL Baso # (Auto) 0 0 (0-100) /uL Platelet Estimate Decreased on smear RBC Morphology See below See below Anisocytosis 1+ H 1+ H Target Cells 1+ H Percent Retic (1.1-2.6) % PT (10.1-12.7) SECONDS INR (0.9-1.3) APTT (26-36) SECONDS Fibrinogen (211-428) mg/dL Sodium 135 L (137-145) mmol/L Potassium 3.3 L (3.4-5.1) mmol/L Chloride 93 L (98-107) mmol/L Carbon Dioxide 21 L (22-32) mmol/L BUN 7 (7-17) mg/dL Creatinine 0.36 L (0.52-1.04) mg/dL Estimated GFR > 60 (>60) mL/min BUN/Creatinine Ratio 19.4 (6-22) Glucose 79 (70-100) mg/dL Lactate (0.7-2.1) mmol/L Calcium 8.0 L (8.4-10.2) mg/dL Magnesium 1.8 (1.6-2.3) mg/dL Total Bilirubin 6.8 H (0.2-1.3) mg/dL AST 89 H (14-36) IU/L ALT 33 (<35) IU/L Alkaline Phosphatase 114 (38-126) U/L Ammonia (9-30) umol/L Total Protein 7.5 (6.3-8.2) g/dL Albumin 4.1 (3.5-5.0) g/dL Globulin 3.4 (1.7-4.1) g/dL Albumin/Globulin Ratio 1.2 (1.0-2.8) Lipase (23-300) U/L Urine Color Urine Appearance Urine pH (4.5-8.0) Ur Specific [place] (1.000-1.035) Urine Protein (Negative) Urine Glucose (UA) (Negative) g/dL Urine Ketones (NEGATIVE) Urine Occult Blood (Negative) Urine Nitrate (Negative) Urine Bilirubin (NEGATIVE) Urine Urobilinogen (0.2) E.U./dL Ur Leukocyte Esterase (NEGATIVE) Acetaminophen (10-30) ug/mL Ethyl Alcohol ( - 10) mg/dL SARS-CoV-2 (PCR) (Negative) Blood Type Antibody Screen Transfusion React Rpt Donor Unit # Lab Clerical Err Check Pre-Trans Blood Type Pre-Trans Vis Hemolysis Pre-Trans Antibody Scrn Post-Trans Blood Type Post-Tx Visible Hemolys Post-Trans Antibody Scrn Reaction Path Interpret Point of care testing: Point of Care Testing Stool Occult Blood Positive Urine Dip Bedside Urine Glucose Negative Bedside Urine Bilirubin - Negative Bedside Urine Ketone +++ 80 Urine Specific [place] 1.015 Bedside Urine Occult Blood - Negative Bedside Urine pH 7.0 Bedside Urine Protein - Negative Bedside Urine Urobilinogen 1+ 2mg Bedside Urine Nitrite - Negative Bedside Urine Leukocytes - Negative Esterase MDM Narrative Medical decision making narrative: CC: 46-year-old female daily drinker with dizziness, weakness, lightheadedness, bleeding from gums and abnormal bruising Complicating co-morbidities: Chronic alcohol use Data collected from: Patient is Medical records reviewed: one prior ED visit in EMR Differential considered, but not limited to: liver failure, anemia, infection, cancer, vs. other Exam documented above, pertinent findings include: scleral icterus, bleeding gums, mild abdominal distension Lab Test results independently reviewed as above. Pertinent findings: pancytopenia, (PLT 30), INR 1.4, Bili / LFTs elevated Imaging studies independently reviewed: cirrhosis Scores Used: MELD (15) Consultations: GI at [facility], given no fever, chills no need for ABX at this time Treatments: Re-evaluations: [Rosa] received patient in sign-out. 46-year-old female with cirrhosis and new onset decompensated liver failure in the setting of alcoholic cirrhosis. Patient pending platelet transfusion for thrombocytopenia with active bleeding from the gums, no evidence of significant GI hemorrhage on initial evaluation. Patient pending transfer for ongoing management, however, due to limited bed availability, patient's workup is continuing in the emergency department including MR abdomen, hepatitis panel. Patient received platelet transfusion and had minimal improvement in bleeding from the gums, 2nd platelet pack was ordered and transferred from [place], due to active bleeding, limited alterna tive treatments available at this site, pt transfused FFP and vitamin K. Pt did develop vomiting and tachycardia that resolved during FFP administration. FFP administration was stopped, however, significant transfusion reaction seems less likely. Following FFP administration pt did have resolution in bleeding from the gums. [place] [id number], however, h/h trending lower. Repeat H/H stabel on repeat. Discussed case with transfer center, pt continues to be on multiple area transfer/admission lists. Dicussed case with hospital medicine team at this facility and pt evaluated, appreciate consult while pt boarding in ED pending disposition. Pt subsequently signed out to oncoming ED provider team pending placement. Critical Care Time <Pradeep Brown, - Last Filed: 06/17/22 14:06> Critical Care Time Critical Care Time: Yes Total Critical Care Time: 60 Attestation: The high probability of a clinically significant, sudden or life threatening deterioration of the [] system(s) required my full and direct attention, intervention and personal management. The aggregate critical care time was [] minutes. This time is in addition to time spent performing reported procedures but includes the following: [] Data Review and interpretation [] Patient assessment and monitoring of vital signs [] Documentation [] Medication orders and management Discharge Plan Departure Patient Disposition: Home Clinical Impression: Cirrhosis of liver Instructions: Liver Disease, General (Alternative Therapy), DI for Cirrhosis Activity Restrictions/Additional Instructions: Please follow up in the outpatient setting with your primary care physician and with gastroenterology/hepatology as discussed. Your primary care provider can help you with referral for Gastroenterology. Please return to the emergency department if you have worsening symptoms including bleeding, vomiting, a bdominal pain, confusion. Referrals: Miscellaneous,Doctor, [Primary Care Provider] - Stand Alone Forms: Patient Portal/API
[2022-06-16 01:12] LABS: Add Manual Diff / Slide Review NO; Basophils Absolute Auto 100 /uL (0-100); Basophils Percent Auto 1.7 % (0-2); Eosinophils Absolute Auto 0 /uL (0-450); Eosinophils Percent Auto 1.1 % (2-4); Hematocrit 26.3 % (36-46); Hemoglobin 8.5 g/dL (12.0-16.0); INR 1.4 (0.9-1.3); Lymphocytes Absolute Auto 800 /uL (1100-4500); Lymphocytes Percent Auto 22.7 % (25-40); Mean Corpuscular HGB Conc 32.4 % (30-36); Mean Corpuscular Hemoglobin 27.1 PG (26-34); Mean Corpuscular Volume 83.4 fL (80-100); Monocytes Absolute Auto 300 /uL (0-900); Monocytes Percent Auto 7.5 % (3-14); Neutrophils Absolute Auto 2400 /uL (1500-7000); Prothrombin Time 15.6 SECONDS (10.1-12.7); Red Blood Cell Count 3.15 X10^6/uL (4.0-5.2); Red Cell Distribution Width 21.9 % (11.6-14.8); White Blood Cell Count 3.6 X10^3/uL (4.5-11.0)
[2022-06-16 01:15] LABS: PTT Partial Thromboplastin Tim 39 SECONDS (26-36)
[2022-06-16 01:16] LABS: Lactate (Lactic Acid) 2.2 mmol/L (0.7-2.1)
[2022-06-16 01:17] LABS: Alanine Aminotransferase 35 IU/L (<35); Albumin 4.4 g/dL (3.5-5.0); Albumin Globulin Ratio 1.2 (1.0-2.8); Alkaline Phosphatase 154 U/L (38-126); Aspartate Aminotransferase 110 IU/L (14-36); Bilirubin Total 3.2 mg/dL (0.2-1.3); Blood Urea Nitrogen 7 mg/dL (7-17); Calcium 8.4 mg/dL (8.4-10.2); Carbon Dioxide 27 mmol/L (22-32); Chloride 98 mmol/L (98-107); Estimated Glomerular Filt Rate > 60 mL/min (>60); Globulin 3.7 g/dL (1.7-4.1); Glucose 95 mg/dL (70-100); HEMOLYSIS < 15 (0-50); Lipase 380 U/L (23-300); Magnesium 1.5 mg/dL (1.6-2.3); Potassium 3.5 mmol/L (3.4-5.1); Sodium 141 mmol/L (137-145); Total Protein 8.1 g/dL (6.3-8.2)
[2022-06-16 01:38] LABS: Platelet Count 31 X10^3/uL (150-400)
[2022-06-16 01:39] LABS: Anisocytosis 2+; Platelet Estimate Decreased on smear
--- NOTE | 2022-06-16 02:36 | DI.CT.S_ITS ---
PROCEDURE: CT CHEST ABD PEL W CON INDICATIONS: abdominal pain, weight loss, jaundice TECHNIQUE: After the administration of oral and intravenous contrast, axial sections acquired from the supraclavicular neck to the pubic symphysis. Coronal and sagittal reformats were performed. For radiation dose reduction, the following was used: automated exposure control, adjustment of mA and/or kV according to patient size. COMPARISON: None. FINDINGS: Image quality: Excellent. CHEST: Lower Neck: No enlarged lymph nodes. Thyroid: Within normal limits. Axillae: No enlarged lymph nodes. Chest Wall: Unremarkable. Lungs and Airways: No consolidation or suspicious nodules. Small hiatal hernia. Pleura: No pneumothorax or pleural effusions. Heart: Heart size is normal. No pericardial effusion. Thoracic Vessels: The aorta and pulmonary arteries demonstrate normal size. Mediastinum and Rosita: No enlarged lymph nodes. Esophagus: No wall thickening. Small hiatal hernia. ABDOMEN: Liver: Liver is mildly enlarged and demonstrates nodular contour and heterogeneous attenuation suggesting cirrhosis. There is a 2.3 cm cyst near hepatic dome. Gallbladder: Unremarkable. Biliary ducts: Unremarkable. Pancreas: Mild stranding around the pancreas. No pancreatic duct dilation or calcification. Spleen: Mildly enlarged measuring 13.2 cm in length. Adrenal Glands: Unremarkable. Kidneys and Ureters: Unremarkable. Stomach and Bowel: Stomach, small bowel loops, and colon are unremarkable. Mild thickening of the horizontal segment of the duodenum. There are a few colonic diverticula. No CT findings to suggest acute diverticulitis. Peritoneum: There is a small amount abnormal intraperitoneal fluid. No free air. Ventral Wall: No hernia. Abdominal Nodes: No retroperitoneal adenopathy by size criteria. There is mild mesenteric stranding and prominent mesenteric lymph nodes. Vessels: Aorta and inferior vena cava are normal in size. Recannulized umbilical vein. Esophageal and gastric varices. PELVIS: Pelvic Organs: Myomatous uterus with multiple uterine fibroids. Ovaries are grossly normal. Bladder: Unremarkable. Pelvic Nodes: No enlarged lymph nodes. Miscellaneous: No inguinal hernias are seen. Bones: Unremarkable. IMPRESSION: 1. Hepatomegaly with nodular contour and heterogeneous enhancement of liver suggesting cirrhosis. 2. Splenomegaly, recanalized umbilical vein, and esophageal/gastric varices, consistent with portal hypertension. 3. There is thickening of the horizontal segment of duodenum, suggesting duodenitis. 4. Mild stranding of pancreas. Please correlate with pancreatic enzymes for mild pancreatitis. 5. Diverticulosis. No diverticulitis. 6. A small amount of ascites. 7. Mild mesenteric stranding and numerous small subcentimeter mesenteric lymph nodes, nonspecific. 8. Myomatous uterus. No significant discrepancy with the night assistant radiology preliminary report. Dictated by: Dakotah Gallegos M.D. on 06/16/2022 at 8:23 Approved by: Dakotah Gallegos M.D. on 06/16/2022 at 8:46
[2022-06-16 03:02] LABS: Reflexed Lactate in 2 Hours Y
[2022-06-16 03:43] LABS: Lactate 2HR (Lactic Acid Rflx) 2.1 mmol/L (0.7-2.1)
[2022-06-16 06:07] LABS: Ethanol (ETOH) 231 mg/dL
[2022-06-16 06:08] LABS: Ammonia (NH3) 13 umol/L (9-30)
[2022-06-16 06:08] LABS: Acetaminophen < 10 ug/mL (10-30)
[2022-06-16 06:34] LABS: COVID19 -Nasal RAPID Negative (Negative)
--- NOTE | 2022-06-16 06:53 | DI.MRI.S_ITS ---
PROCEDURE: MR ABDOMEN LIVER PROTOCOL INDICATIONS: abdominal pain, liver failure, abnormal CT TECHNIQUE: Coronal HASTE, axial 2D FLASH in- and [id number]; axial breath-hold T2 FSE. Dynamic axial VIBE during the administration of contrast; post-contrast coronal VIBE or 2D FLASH with fat saturation from the hepatic dome to the iliac crests. Optional diffusion weighted imaging and ADC may be performed. COMPARISON: [facility], CT, CT CHEST ABD PEL W CON, 06/16/2022, 3:05. FINDINGS: Image quality: Adequate Lung bases: No basal pleural effusions. Liver: The liver is heterogeneous in signal with patchy areas of signal loss on out of phase images compatible with steatosis. Widening of the fissures with prominence of the caudate lobe redemonstrated. Possible surface nodularity. A 2.6 cm cyst is present at segment 8/7 as on the recent CT. No suspicious focal liver lesions identified. Solid organs: Gallbladder is unremarkable. Biliary system is non dilated. Pancreas is normal in morphology. Spleen is prominent in size, 13.6 cm craniocaudad. No adrenal nodules. Both kidneys demonstrate normal size and enhancement, without hydronephrosis. Nodes and vessels: No retroperitoneal or mesenteric adenopathy by size criteria. Aorta and inferior vena cava are normal in size. Recanalization of the paraumbilical vein. Upper abdominal varices are present. Bowel and peritoneum: Unenhanced bowel loops are normal in caliber. Trace abdominal free fluid present, mesenteric edema also demonstrated as on recent CT IMPRESSION: 1. Morphologic changes of the liver are present suspicious for cirrhosis. Stigmata of portal hypertension are present as on recent CT. 2. Heterogeneous hepatic steatosis/fat deposition present. No suspicious focal liver lesion identified. Dictated by: Roosevelt Tate M.D. on 06/16/2022 at 9:56 Approved by: Roosevelt Tate M.D. on 06/16/2022 at 10:19
[2022-06-16] MEDS: LORazepam 2 MG/ML INJ 0.5 MG IV ×2 (07:22→17:18)
[2022-06-16 10:04] LABS: Basophils Absolute Auto 0 /uL (0-100); Eosinophils Absolute Auto 0 /uL (0-450); Hemoglobin 7.2 g/dL (12.0-16.0)
[2022-06-16 10:09] LABS: Basophils Percent Auto 0.8 % (0-2); Eosinophils Percent Auto 0.4 % (2-4); Hematocrit 22.2 % (36-46); Lymphocytes Absolute Auto 500 /uL (1100-4500); Lymphocytes Percent Auto 15.8 % (25-40); Mean Corpuscular HGB Conc 32.4 % (30-36); Mean Corpuscular Volume 83.2 fL (80-100); Monocytes Absolute Auto 300 /uL (0-900); Monocytes Percent Auto 9.3 % (3-14); Neutrophils Absolute Auto 2200 /uL (1500-7000); Neutrophils Percent Auto 73.7 % (50-75); Red Blood Cell Count 2.67 X10^6/uL (4.0-5.2); Red Cell Distribution Width 21.4 % (11.6-14.8)
[2022-06-16 10:10] LABS: Platelet Count 49 X10^3/uL (150-400)
[2022-06-16 10:11] LABS: Add Manual Diff / Slide Review SLIDE REVIEW
[2022-06-16 10:12] LABS: INR 1.5 (0.9-1.3); Prothrombin Time 17.2 SECONDS (10.1-12.7)
[2022-06-16 10:13] LABS: Alanine Aminotransferase 35 IU/L (<35); Albumin Globulin Ratio 1.1 (1.0-2.8); Alkaline Phosphatase 121 U/L (38-126); Aspartate Aminotransferase 104 IU/L (14-36); BUN Creatinine Ratio 22.2 (6-22); Bilirubin Total 3.2 mg/dL (0.2-1.3); Blood Urea Nitrogen 6 mg/dL (7-17); Calcium 8.1 mg/dL (8.4-10.2); Carbon Dioxide 24 mmol/L (22-32); Chloride 99 mmol/L (98-107); Estimated Glomerular Filt Rate > 60 mL/min (>60); Globulin 3.5 g/dL (1.7-4.1); Glucose 83 mg/dL (70-100); HEMOLYSIS < 15 (0-50); Potassium 3.4 mmol/L (3.4-5.1); Sodium 140 mmol/L (137-145); Total Protein 7.5 g/dL (6.3-8.2)
[2022-06-16 10:32] LABS: Anisocytosis 2+
[2022-06-16 10:33] LABS: Target Cells 1+
[2022-06-16 11:30] LABS: Hematocrit 22.4 % (36-46); Hemoglobin 7.3 g/dL (12.0-16.0)
[2022-06-16] MEDS: PHYTONADIONE (VIT K1) 10 MG in SODIUM CHLORIDE 0.9% 100 ML 202 MG IV (13:52)
[2022-06-16 14:21] LABS: Fibrinogen 171 mg/dL (211-428)
[2022-06-16 14:46] LABS: Appearance Urine UA CLEAR; Bilirubin Urine UA NEGATIVE (NEGATIVE); Color Urine UA YELLOW; Glucose Urine UA NEGATIVE (Negative); Ketones Urine UA 3+ (NEGATIVE); Leukocyte Esterase Urine UA NEGATIVE (NEGATIVE); Nitrite Urine UA NEGATIVE (Negative); Occult Blood Urine UA NEGATIVE (Negative); Protein Urine UA TRACE (Negative); Specific Gravity Urine UA 1.015 (1.000-1.035)
--- NOTE | 2022-06-16 16:17 | PM.CN ---
History of Present Illness Consult details Date Patient Seen: 06/16/22 Time Patient Seen: 15:30 Chief complaint: possible hernia that bursted Narrative: This is a 46 year old female with no PMH, but drinks alcohol daily for the past 10 years (4-6 shots per day, will go through a 5th in a couple of days) who presented with bleeding gums to the ER yesterday. She states she has felt weak and fatigued for the past couple of weeks to months, with jaundiced noticed by family starting a month ago. She has lost about 70 lbs in the last couple of months due to decreased appetite. She complains of dizziness with standing for the past week or so. She has had a couple of dark stools over the past few months but not all the time. She denies hematemesis or hematochezia. She denies abdominal pain, vaginal bleeding or discharge. She denies fever, chills, or vomiting but has occasional nausea. In the emergency room, initially her vital signs were unremarkable. Laboratory evaluation revealed a pancytopenia severe thrombocytopenia with a platelet count of 34, hemoglobin of 8.5. INR was 1.5, fibrinogen was low at 171. Total bilirubin was 3.2, with a mild transaminase elevation with AST of 100 and ALT in the 30s. Lipase was mildly elevated at 380. Ammonia level was 13. Magnesium was 1.5. Given bleeding she was transfused platelets with improvement to 49. She had increased dizziness with her transfusion of platelets, though this resolved with a slowed infusion according to the patient. Hemoglobin has declined from 8.5-7.2, then stayed stable at 7.3 on repeat early this afternoon. Imaging thus far has been consistent with cirrhosis of her liver, with splenomegaly and notable gastic and esophageal varices. She has been pending transfer to facility, hospitalist Service was asked for consultation to potentially admit her [facility]. Meds Home Medications and Allergies Allergies Allergy/AdvReac Type Severity Reaction Status Date / Time Penicillins Allergy Unknown Unknown Verified 06/16/22 00:56 Review of Systems Review of Systems Narrative: All other systems reviewed with the patient and are negative unless otherwise stated. Exam Vital Signs (past 8 hours): - 06/16/22 08:50 06/16/22 09:06 06/16/22 09:30 Temperature 98.0 F 97.8 F Pulse Rate 95 H 100 H 100 H Respiratory Rate 18 18 29 H Blood Pressure 137/78 138/75 Pulse Oximetry 96 06/16/22 10:00 06/16/22 10:30 06/16/22 11:00 Temperature Pulse Rate 101 H 101 H 113 H Respiratory Rate 21 34 H 18 Blood Pressure Pulse Oximetry 94 96 96 06/16/22 11:21 06/16/22 11:21 06/16/22 09:30 Temperature Pulse Rate 105 H 100 H Respiratory Rate 20 18 Blood Pressure 139/74 Pulse Oximetry 94 06/16/22 12:12 06/16/22 12:26 06/16/22 11:30 Temperature 98.1 F 97.1 F L Pulse Rate 110 H 140 H Respiratory Rate 18 18 Blood Pressure 143/63 H 153/73 H 145/78 H Pulse Oximetry 06/16/22 11:30 06/16/22 12:00 06/16/22 12:02 Temperature Pulse Rate 106 H 112 H Respiratory Rate 20 18 Blood Pressure 143/63 H Pulse Oximetry 95 95 06/16/22 12:02 06/16/22 12:30 06/16/22 12:30 Temperature Pulse Rate 113 H 114 H Respiratory Rate 24 23 Blood Pressure 153/73 H Pulse Oximetry 95 95 06/16/22 13:00 06/16/22 13:01 06/16/22 13:01 Temperature Pulse Rate 110 H 110 H Respiratory Rate 24 20 Blood Pressure 150/65 H Pulse Oximetry 97 97 06/16/22 13:30 06/16/22 13:30 06/16/22 14:00 Temperature Pulse Rate 105 H Respiratory Rate 18 Blood Pressure 134/63 141/74 H Pulse Oximetry 95 06/16/22 14:00 06/16/22 14:30 06/16/22 14:30 Temperature Pulse Rate 108 H 109 H Respiratory Rate 17 17 Blood Pressure 135/75 Pulse Oximetry 94 95 Oxygen Delivery Method Room Air Narrative Exam Narrative: General:? Chronically ill appearing female HEENT:? Normocephalic, atraumatic, extraocular muscles intact, scleral icterus present. Mild ulcerations of her oral mucosa with dried blood. Breath of fetor hepaticus. Neck: supple and symmetric, trachea is midline, no cervical adenopathy. Negative for JVD Chest:? Normal AP diameter and contour without kyphoscoliosis, no tachypnea, equal chest rise bilaterally. Lungs:? CTA b/l no wheezing rhonchi or rales. Cardio:?Tachycardic, regular rhythm, 3/6 systolic murmur Abdomen: S NT ND. Musculoskeletal:? Muscle strength and tone are equal within normal limits, no deformity. Extremities: No edema or joint effusions. No cyanosis or clubbing. Skin:? Pale,? Warm to touch,dry and intact, b/l LE petechiae and spider angiomata of her chest. Neuro:? Alert and orientated x3,? sensation to touch intact in all extremities, no gross deficits noted of cranial nerves. Psych:? Patient has a well-kept appearance, appropriate affect, mental status attitude thought context and judgment are appropriate for age. Objective Labs 06/16/22 11:20 06/16/22 09:50 Labs: Laboratory Results - last 24 hr 06/16/22 06/16/22 06/16/22 00:45 00:45 00:45 WBC 3.6 L RBC 3.15 L Hgb 8.5 L Hct 26.3 L MCV 83.4 MCH 27.1 MCHC 32.4 RDW 21.9 H Plt Count 31 L* Neut % (Auto) 67.0 Lymph % (Auto) 22.7 L [place] % (Auto) 7.5 Eos % (Auto) 1.1 L Baso % (Auto) 1.7 Neut # (Auto) 2400 Lymph # (Auto) 800 L [place] # (Auto) 300 Eos # (Auto) 0 Baso # (Auto) 100 Platelet Estimate Decreased on smear RBC Morphology See below Anisocytosis 2+ H Target Cells Percent Retic PT 15.6 H INR 1.4 H APTT 39 H Fibrinogen Sodium 141 Potassium 3.5 Chloride 98 Carbon Dioxide 27 BUN 7 Creatinine 0.35 L Estimated GFR > 60 BUN/Creatinine Ratio 20.0 Glucose 95 Lactate Calcium 8.4 Magnesium Total Bilirubin 3.2 H AST 110 H ALT 35 H Alkaline Phosphatase 154 H Ammonia Total Protein 8.1 Albumin 4.4 Globulin 3.7 Albumin/Globulin Ratio 1.2 Lipase Urine Color Urine Appearance Urine pH Ur Specific [place] Urine Protein Urine Glucose (UA) Urine Ketones Urine Occult Blood Urine Nitrate Urine Bilirubin Urine Urobilinogen Ur Leukocyte Esterase Acetaminophen Ethyl Alcohol SARS-CoV-2 (PCR) Blood Type Antibody Screen Transfusion React Rpt Donor Unit # Lab Clerical Err Check Pre-Trans Blood Type Pre-Trans Vis Hemolysis Pre-Trans Antibody Scrn Post-Trans Blood Type Post-Tx Visible Hemolys Post-Trans Antibody Scrn Reaction Path Interpret 06/16/22 06/16/22 06/16/22 00:45 00:45 01:16 WBC RBC Hgb Hct MCV MCH MCHC RDW Plt Count Neut % (Auto) Lymph % (Auto) [place] % (Auto) Eos % (Auto) Baso % (Auto) Neut # (Auto) Lymph # (Auto) [place] # (Auto) Eos # (Auto) Baso # (Auto) Platelet Estimate RBC Morphology Anisocytosis Target Cells Percent Retic PT INR APTT Fibrinogen Sodium Potassium Chloride Carbon Dioxide BUN Creatinine Estimated GFR BUN/Creatinine Ratio Glucose Lactate 2.2 H Calcium Magnesium 1.5 L Total Bilirubin AST ALT Alkaline Phosphatase Ammonia Total Protein Albumin Globulin Albumin/Globulin Ratio Lipase 380 H Urine Color Urine Appearance Urine pH Ur Specific [place] Urine Protein Urine Glucose (UA) Urine Ketones Urine Occult Blood Urine Nitrate Urine Bilirubin Urine Urobilinogen Ur Leukocyte Esterase Acetaminophen Ethyl Alcohol SARS-CoV-2 (PCR) Blood Type A Positive Antibody Screen Negative Transfusion React Rpt Donor Unit # Lab Clerical Err Check Pre-Trans Blood Type Pre-Trans Vis Hemolysis Pre-Trans Antibody Scrn Post-Trans Blood Type Post-Tx Visible Hemolys Post-Trans Antibody Scrn Reaction Path Interpret 06/16/22 06/16/22 06/16/22 01:16 03:24 05:43 WBC RBC Hgb Cancelled Hct Cancelled MCV MCH MCHC RDW Plt Count Neut % (Auto) Lymph % (Auto) [place] % (Auto) Eos % (Auto) Baso % (Auto) Neut # (Auto) Lymph # (Auto) [place] # (Auto) Eos # (Auto) Baso # (Auto) Platelet Estimate RBC Morphology Anisocytosis Target Cells Percent Retic PT INR APTT Fibrinogen Sodium Potassium Chloride Carbon Dioxide BUN Creatinine Estimated GFR BUN/Creatinine Ratio Glucose Lactate 2.1 Calcium Magnesium Total Bilirubin AST ALT Alkaline Phosphatase Ammonia 13 Total Protein Albumin Globulin Albumin/Globulin Ratio Lipase Urine Color Urine Appearance Urine pH Ur Specific [place] Urine Protein Urine Glucose (UA) Urine Ketones Urine Occult Blood Urine Nitrate Urine Bilirubin Urine Urobilinogen Ur Leukocyte Esterase Acetaminophen Ethyl Alcohol SARS-CoV-2 (PCR) Blood Type Antibody Screen Transfusion React Rpt Donor Unit # Lab Clerical Err Check Pre-Trans Blood Type Pre-Trans Vis Hemolysis Pre-Trans Antibody Scrn Post-Trans Blood Type Post-Tx Visible Hemolys Post-Trans Antibody Scrn Reaction Path Interpret 06/16/22 06/16/22 06/16/22 05:44 05:44 05:44 WBC RBC Hgb Hct MCV MCH MCHC RDW Plt Count Neut % (Auto) Lymph % (Auto) [place] % (Auto) Eos % (Auto) Baso % (Auto) Neut # (Auto) Lymph # (Auto) [place] # (Auto) Eos # (Auto) Baso # (Auto) Platelet Estimate RBC Morphology Anisocytosis Target Cells Percent Retic 2.0 PT INR APTT Fibrinogen Sodium Potassium Chloride Carbon Dioxide BUN Creatinine Estimated GFR BUN/Creatinine Ratio Glucose Lactate Calcium Magnesium Total Bilirubin AST ALT Alkaline Phosphatase Ammonia Total Protein Albumin Globulin Albumin/Globulin Ratio Lipase Urine Color Urine Appearance Urine pH Ur Specific [place] Urine Protein Urine Glucose (UA) Urine Ketones Urine Occult Blood Urine Nitrate Urine Bilirubin Urine Urobilinogen Ur Leukocyte Esterase Acetaminophen < 10 Ethyl Alcohol 231 H SARS-CoV-2 (PCR) Blood Type Antibody Screen Transfusion React Rpt Donor Unit # Lab Clerical Err Check Pre-Trans Blood Type Pre-Trans Vis Hemolysis Pre-Trans Antibody Scrn Post-Trans Blood Type Post-Tx Visible Hemolys Post-Trans Antibody Scrn Reaction Path Interpret 06/16/22 06/16/22 06/16/22 06:10 09:50 09:50 WBC 3.0 L RBC 2.67 L Hgb 7.2 L Hct 22.2 L MCV 83.2 MCH 27.0 MCHC 32.4 RDW 21.4 H Plt Count 49 L Neut % (Auto) 73.7 Lymph % (Auto) 15.8 L [place] % (Auto) 9.3 Eos % (Auto) 0.4 L Baso % (Auto) 0.8 Neut # (Auto) 2200 Lymph # (Auto) 500 L [place] # (Auto) 300 Eos # (Auto) 0 Baso # (Auto) 0 Platelet Estimate RBC Morphology See below Anisocytosis 2+ H Target Cells 1+ H Percent Retic PT 17.2 H INR 1.5 H APTT Fibrinogen Sodium Potassium Chloride Carbon Dioxide BUN Creatinine Estimated GFR BUN/Creatinine Ratio Glucose Lactate Calcium Magnesium Total Bilirubin AST ALT Alkaline Phosphatase Ammonia Total Protein Albumin Globulin Albumin/Globulin Ratio Lipase Urine Color Urine Appearance Urine pH Ur Specific [place] Urine Protein Urine Glucose (UA) Urine Ketones Urine Occult Blood Urine Nitrate Urine Bilirubin Urine Urobilinogen Ur Leukocyte Esterase Acetaminophen Ethyl Alcohol SARS-CoV-2 (PCR) Negative Blood Type Antibody Screen Transfusion React Rpt Donor Unit # Lab Clerical Err Check Pre-Trans Blood Type Pre-Trans Vis Hemolysis Pre-Trans Antibody Scrn Post-Trans Blood Type Post-Tx Visible Hemolys Post-Trans Antibody Scrn Reaction Path Interpret 06/16/22 06/16/22 06/16/22 09:50 11:20 13:06 WBC RBC Hgb 7.3 L Hct 22.4 L MCV MCH MCHC RDW Plt Count Neut % (Auto) Lymph % (Auto) [place] % (Auto) Eos % (Auto) Baso % (Auto) Neut # (Auto) Lymph # (Auto) [place] # (Auto) Eos # (Auto) Baso # (Auto) Platelet Estimate RBC Morphology Anisocytosis Target Cells Percent Retic PT INR APTT Fibrinogen Sodium 140 Potassium 3.4 Chloride 99 Carbon Dioxide 24 BUN 6 L Creatinine 0.27 L Estimated GFR > 60 BUN/Creatinine Ratio 22.2 H Glucose 83 Lactate Calcium 8.1 L Magnesium Total Bilirubin 3.2 H AST 104 H ALT 35 H Alkaline Phosphatase 121 Ammonia Total Protein 7.5 Albumin 4.0 Globulin 3.5 Albumin/Globulin Ratio 1.1 Lipase Urine Color Urine Appearance Urine pH Ur Specific [place] Urine Protein Urine Glucose (UA) Urine Ketones Urine Occult Blood Urine Nitrate Urine Bilirubin Urine Urobilinogen Ur Leukocyte Esterase Acetaminophen Ethyl Alcohol SARS-CoV-2 (PCR) Blood Type Antibody Screen Transfusion React Rpt No discrepancies Donor Unit # [id number] Lab Clerical Err Check No error found Pre-Trans Blood Type A positive Pre-Trans Vis Hemolysis No Pre-Trans Antibody Scrn Negative Post-Trans Blood Type A positive Post-Tx Visible Hemolys No Post-Trans Antibody Scrn Negative Reaction Path Interpret 06/16/22 06/16/22 13:06 14:33 WBC RBC Hgb Hct MCV MCH MCHC RDW Plt Count Neut % (Auto) Lymph % (Auto) [place] % (Auto) Eos % (Auto) Baso % (Auto) Neut # (Auto) Lymph # (Auto) [place] # (Auto) Eos # (Auto) Baso # (Auto) Platelet Estimate RBC Morphology Anisocytosis Target Cells Percent Retic PT INR APTT Fibrinogen 171 L Sodium Potassium Chloride Carbon Dioxide BUN Creatinine Estimated GFR BUN/Creatinine Ratio Glucose Lactate Calcium Magnesium Total Bilirubin AST ALT Alkaline Phosphatase Ammonia Total Protein Albumin Globulin Albumin/Globulin Ratio Lipase Urine Color Yellow Urine Appearance Clear Urine pH 8.0 Ur Specific [place] 1.015 Urine Protein Trace H Urine Glucose (UA) Negative Urine Ketones 3+ H Urine Occult Blood Negative Urine Nitrate Negative Urine Bilirubin Negative Urine Urobilinogen 4.0 H Ur Leukocyte Esterase Negative Acetaminophen Ethyl Alcohol SARS-CoV-2 (PCR) Blood Type Antibody Screen Transfusion React Rpt Donor Unit # Lab Clerical Err Check Pre-Trans Blood Type Pre-Trans Vis Hemolysis Pre-Trans Antibody Scrn Post-Trans Blood Type Post-Tx Visible Hemolys Post-Trans Antibody Scrn Reaction Path Interpret [facility] Surgical History (Updated 06/16/22 @ 16:39 by Delmar Brantley DO) History of tonsillectomy Family History (Updated 06/16/22 @ 16:39 by Delmar Brantley DO) Mother No pertinent past medical history Father No pertinent past medical history Tobacco & Substance Use Smoking Status: Former smoker alcohol intake: current (5-6 equivalents per day reported) substance use type: does not use Assessment & Plan Assessment & Plan narrative: 1. Pancytopenia with possible acute blood loss anemia - secondary to alcoholism with cirrhosis. - Transfuse for Plt <10, or <50 if bleeding. Current Plt 49. - counseled on alcohol cessation - suspect component of probable GI bleeding, guaiac + stool though does have mucosal oral bleeding. CT imaging shows duodenitis, so cannot rule out active upper GI bleeding. Recommend PPI IV BID for now. Continue to trend h/h. Endoscopy recommended at this time, and given varices on imaging this should be done at a higher level facility with gastroenterology consultation. Would also recommend transfer given platelets are not stored at this facility and if she continues to bleed this may require significant platelet transfusion. Should her h/h and plt stabilize, however, endoscopy could possibly be done as an outpatient and she may be able to discharge home. - I would recommend PRBC transfusion at this time with dizziness and dyspnea with movement and her anemia, use caution as there was a mild transfusion reaction with platelets given earlier. 2. Alcoholic cirrhosis. - probable cirrhosis, less likely alcoholic hepatitis. DF would be <32 so no indication for steroids. MELD-NA of 15 (6% mortality risk in 90 days). She has ascites on imaging, though not enough for paracentesis at this time. - Hepatitis serologies pending. - counseled on cessation, she appears motivated to stop drinking - EtOH 231 on admission, no current evidence of withdrawal. - imaging consistent with cirrhosis, with splenomegaly and gastric and esophageal varices. - ideally would be able to start propranolol given her varices, however not currently given her anemia and dizziness. 3. Hypomagnsemia, acute - replete with 2g IV Code: full, surrogate is patient's parents Additional history obtained via: parents and family at bedside, ER provider, ER documentation, review of imaging. I have utilized all available immediate resources to obtain, update, or review the patient's current medications. Continue to recommend transfer to higher level facility with GI at this time. Time Spent With Patient Critical Care time: I spent a total of [] minutes of critical care time on this patient's care today; this time is exclusive of procedural time.
[2022-06-16] MEDS: PANTOPRAZOLE 40 MG VIAL 80 MG IV (17:17)
[2022-06-16] MEDS: ONDANSETRON 4 MG/2 ML INJ IV (17:17)
[2022-06-16] MEDS: MAGNESIUM SULFATE 2 GM/50 ML PIGGYBACK IV (17:18)
[2022-06-16 17:52] LABS: Add Manual Diff / Slide Review NO; Basophils Absolute Auto 0 /uL (0-100); Basophils Percent Auto 0.9 % (0-2); Eosinophils Absolute Auto 0 /uL (0-450); Eosinophils Percent Auto 0.5 % (2-4); Hematocrit 24.8 % (36-46); Hemoglobin 8.1 g/dL (12.0-16.0); Lymphocytes Absolute Auto 200 /uL (1100-4500); Lymphocytes Percent Auto 6.8 % (25-40); Mean Corpuscular HGB Conc 32.6 % (30-36); Mean Corpuscular Hemoglobin 27.2 PG (26-34); Mean Corpuscular Volume 83.4 fL (80-100); Monocytes Absolute Auto 400 /uL (0-900); Monocytes Percent Auto 12.2 % (3-14); Neutrophils Absolute Auto 2600 /uL (1500-7000); Neutrophils Percent Auto 79.6 % (50-75); Platelet Count 49 X10^3/uL (150-400); Red Blood Cell Count 2.97 X10^6/uL (4.0-5.2); Red Cell Distribution Width 20.9 % (11.6-14.8); White Blood Cell Count 3.2 X10^3/uL (4.5-11.0)
--- NOTE | 2022-06-16 17:59 | PC.NURSE ---
[facility], facesheets faxed. [facility] updated @ 12:41. [facility] is aware and updated at 17:45, spoke with CELI Gonzalez.
[2022-06-16 18:36] LABS: Anisocytosis 1+; Target Cells 1+
[2022-06-16 18:37] LABS: Platelet Estimate Decreased on smear
[2022-06-16] MEDS: PANTOPRAZOLE 40 MG VIAL IV (21:40)
[2022-06-17] VITALS (20 sets, daily range): BP systolic 123–139; BP diastolic 71–85; PULSE 102–140; RESP 14–23; O2SAT 95–99
--- NOTE | 2022-06-17 04:29 | PC.NURSE ---
Pt denies at this time, no bleeding from gums. does have a couple of spots of dried blood in lips. denies any feeling of abdominal distention. denies any nausea at this time.
[2022-06-17 05:23] LABS: Alanine Aminotransferase 33 IU/L (<35); Albumin 4.1 g/dL (3.5-5.0); Albumin Globulin Ratio 1.2 (1.0-2.8); Alkaline Phosphatase 114 U/L (38-126); Aspartate Aminotransferase 89 IU/L (14-36); BUN Creatinine Ratio 19.4 (6-22); Bilirubin Total 6.8 mg/dL (0.2-1.3); Blood Urea Nitrogen 7 mg/dL (7-17); Carbon Dioxide 21 mmol/L (22-32); Chloride 93 mmol/L (98-107); Estimated Glomerular Filt Rate > 60 mL/min (>60); Globulin 3.4 g/dL (1.7-4.1); Glucose 79 mg/dL (70-100); HEMOLYSIS < 15 (0-50); Magnesium 1.8 mg/dL (1.6-2.3); Potassium 3.3 mmol/L (3.4-5.1); Sodium 135 mmol/L (137-145); Total Protein 7.5 g/dL (6.3-8.2)
[2022-06-17 05:39] LABS: Add Manual Diff / Slide Review NO; Basophils Absolute Auto 0 /uL (0-100); Basophils Percent Auto 1.1 % (0-2); Eosinophils Absolute Auto 0 /uL (0-450); Eosinophils Percent Auto 1.2 % (2-4); Hematocrit 25.3 % (36-46); Hemoglobin 8.1 g/dL (12.0-16.0); Lymphocytes Absolute Auto 500 /uL (1100-4500); Mean Corpuscular HGB Conc 32.1 % (30-36); Mean Corpuscular Hemoglobin 27.3 PG (26-34); Monocytes Absolute Auto 300 /uL (0-900); Monocytes Percent Auto 8.7 % (3-14); Neutrophils Absolute Auto 2100 /uL (1500-7000); Platelet Count 45 X10^3/uL (150-400); Red Blood Cell Count 2.97 X10^6/uL (4.0-5.2); White Blood Cell Count 2.9 X10^3/uL (4.5-11.0)
[2022-06-17 06:18] LABS: Anisocytosis 1+
--- NOTE | 2022-06-17 08:21 | PC.NURSE ---
Tachycardia noted. Pt is up, was walking, now eating. Denies shortness of breath. States she feels improved. No acute distress.
[2022-06-17] MEDS: PANTOPRAZOLE 40 MG VIAL IV (09:02)
--- NOTE | 2022-06-17 09:21 | PC.NURSE ---
Attempted to confirm appointment on 06/26 and was told it had been canceled. Pt states she did not cancel it. MOVEMENT EDUCATION SPECIALIST referral to assist in much needed follow up. Cleared for discharge. Pt encouraged to have a very low threshold for return for any worsening symptoms or concerns. a/o x 4. Ambulatory w/o difficulty. Tolerating po food / fluids.
--- NOTE | 2022-06-17 16:37 | CM.SWNOTE ---
MEAT PROCESSOR f/u Note MEAT PROCESSOR calls [facility] to request PCP f/u appt and establish patient with PCP. It is reported that they will contact patient to schedule PCP appt. MEAT PROCESSOR states that if they schedule appt, MEAT PROCESSOR can call patient as well. Lola Carey, MANAGER DATA
[2022-06-18 06:14] LABS: HBsAg Screen Negative (Negative); Hepatitis A Antibody IgM Negative (Negative); Hepatitis B Core Antibody IgM Negative (Negative); Hepatitis C Antibody 0.1 s/co ratio (0.0-0.9)
== END 2022-06-17 09:56 | disposition home or self-care (01) ==
PROVIDERS: Emergency Medicine; Internal Medicine; Pathology Anatomic Pathology & Clinical Pathology; Emergency Provider Emergency Medicine
DX: K70.30 Alcoholic cirrhosis of liver without ascites (principal); F10.129 Alcohol abuse with intoxication, unspecified; Y90.7 Blood alcohol level of 200-239 mg/100 ml; D69.6 Thrombocytopenia, unspecified; Z20.822 Contact with and (suspected) exposure to COVID-19
CPT/HCPCS: 36415; 36430; 71260; 74177; 74183; 80053; 80074; 80320; 80329; 81003; 82140; 82272; 83605; 83690; 83735; 85014; 85018; 85025; 85045; 85384; 85610; 85730; 86078; 86850; 86900; 86901; 86927; 87205; 87635; 93005; 96361; 96365; 96375; 96376; 99285; 99291; C9803; C9113; G0480; J2060; J2405; J3430; J3475; P9035; Q9967